=== PATIENT | female | born 1960 | race Caucasian/White ===

== ENCOUNTER 2016-06-28 13:46 | Emergency (ER) | payer MEDICARE ==
[~2016-06-28] VITALS: Ht 147.3 cm; Wt 42.1 kg
[~2016-06-28 13:46] MED LIST: ALBU2.5V NPPB; ALBU8.5H5 INH; CEFD300C2 PO; DILT240C55 PO; DOXY100T PO; ESTR1TAB17 PO; ESZO3TAB9; FERR325T20 PO; Guaifenesin PO; Ipratropium/Albuterol Sulfate NPPB; LEVO500T33 PO; LORA-446; LORA-446 PO; LORA2TAB PO; NICO1PAT10 TD; Nicotine TD; OXYC10TA6 PO; Oxycodone Hcl/Acetaminophen PO; PERCO; POLY17PO5 PO; PRED5TAB PO
[2016-06-28 14:12] VITALS: BP 132/71
[2016-06-28] MEDS ORDERED: LORazepam 1MG TABLET PO ONE (14:30)
[2016-06-28] MEDS ORDERED: THIAMINE 100MG TABLET PO ONE (14:30)
[2016-06-28] MEDS ORDERED: LORazepam 1MG TABLET ONE (15:18)
[2016-06-28] MEDS ORDERED: THIAMINE 100MG TABLET ONE (15:18)
== END 2016-06-28 17:17 | disposition home or self-care (01) ==
LOC: ED 16:13
DX: F10.229 Alcohol dependence with intoxication, unspecified (principal); F41.1 Generalized anxiety disorder; Z90.710 Acquired absence of both cervix and uterus; Z90.721 Acquired absence of ovaries, unilateral; M32.9 Systemic lupus erythematosus, unspecified; Z91.14 Patient's other noncompliance with medication regimen
CPT/HCPCS: 99283

== ENCOUNTER → 2016-08-12 | Outpatient (CLI) | payer MEDICARE ==
[~2016-08-12] MED LIST changes: -CEFD300C2 PO; +CEFD300C37 PO
== END | disposition home or self-care (01) ==
LOC: CFH 07:28
PROVIDERS: ATTEND Nurse Practitioner Family
DX: S20.02XA Contusion of left breast, initial encounter (principal); X58.XXXA Exposure to other specified factors, initial encounter; Y93.89 Activity, other specified; Y92.89 Other specified places as the place of occurrence of the external cause; Y99.8 Other external cause status

== ENCOUNTER → 2016-08-31 | Outpatient (CLI) | payer MEDICARE | END | disposition home or self-care (01) | LOC: CFH 06:50 | PROVIDERS: ATTEND Physical Medicine & Rehabilitation | DX: M75.102 Unspecified rotator cuff tear or rupture of left shoulder, not specified as traumatic (principal); M19.012 Primary osteoarthritis, left shoulder ==

== ENCOUNTER 2017-01-29 13:04 | Emergency (ER) | payer MEDICARE ==
[~2017-01-29] VITALS: Ht 144.8 cm; Wt 42.4 kg
[~2017-01-29 13:04] MED LIST changes: +ESZO3TAB28; -ESZO3TAB9; +FERR325T18 PO; -FERR325T20 PO; -LEVO500T33 PO; +LEVO500T47 PO; +NICO-485 TD; -NICO1PAT10 TD
[2017-01-29 13:20] VITALS: BP 149/83
[2017-01-29] MEDS ORDERED: PROPARACAINE OPHTH 0.5%, 15ML ONE (13:34)
[2017-01-29] MEDS ORDERED: FLUORESCEIN OPHTHALMIC 1 MG STRIP ONE (13:34)
[2017-01-29] MEDS ORDERED: CHLORDIAZEPOXIDE 10 MG CAPSULE PO PRN (14:00)
[2017-01-29] MEDS ORDERED: FLUORESCEIN OPHTHALMIC 1 MG STRIP EACHEYE ONE (14:00)
[2017-01-29] MEDS ORDERED: PROPARACAINE OPHTH 0.5%, 15ML EACHEYE ONE (14:00)
== END 2017-01-29 14:24 | disposition home or self-care (01) ==
LOC: ED 14:18
DX: H57.13 Ocular pain, bilateral (principal); F13.239 Sedative, hypnotic or anxiolytic dependence with withdrawal, unspecified; I10 Essential (primary) hypertension; F10.20 Alcohol dependence, uncomplicated; Z90.710 Acquired absence of both cervix and uterus; Z90.721 Acquired absence of ovaries, unilateral
CPT/HCPCS: 99284

== ENCOUNTER 2017-01-30 21:43 | Observation (INO) | payer MEDICARE ==
[~2017-01-30] VITALS: Ht 157.5 cm; Wt 38.0 kg
[2017-01-30 22:55] LABS: HEMATOCRIT 32.9 % (34.6-47.8); HEMOGLOBIN 11.3 g/dL (11.7-16.4); WHITE BLOOD COUNT 4.6 x10^3/uL (3.4-10)
[2017-01-30 23:07] LABS: ASPARTATE AMINO TRANSFERASE 63 U/L (15-37); BLOOD UREA NITROGEN 11 mg/dL (7-18)
[2017-01-30 23:09] LABS: ACETAMINOPHEN < 2 mcg/mL (10-30)
[2017-01-30] MEDS ORDERED: POTASSIUM CHLORIDE 20 MEQ TAB.ER.PRT ONE (23:26)
[2017-01-30] MEDS ORDERED: MAGNESIUM SULFATE 1 GM in SODIUM CHLORIDE 0.9% 50 ML IV ONE (23:30)
[2017-01-30] MEDS ORDERED: SODIUM CHLORIDE FLUSH 10ML SYR IVF ONE (23:30)
[2017-01-30] MEDS ORDERED: POTASSIUM CHLORIDE 10% 40 MEQ/30 ML UDC PO ONE (23:30)
[2017-01-31] MEDS ORDERED: OLANZAPINE 5 MG TABLET PO ONE (02:00)
[2017-01-31] MEDS ORDERED: ALBUTEROL SULFATE 2.5 MG/3 ML NPPB PRN (02:30)
[2017-01-31] MEDS ORDERED: ONDANSETRON ODT 4 MG PO PRN (02:30)
[2017-01-31] MEDS ORDERED: ACETAMINOPHEN 325 MG TABLET PO PRN (02:30)
[2017-01-31 02:49] LABS: DAU SCREEN DISCLAIMER
[2017-01-31 04:31] VITALS: BP 153/69
[2017-01-31 08:05] VITALS: BP 135/79
[2017-01-31 09:15] LABS: HEMATOCRIT 33.2 % (34.6-47.8); HEMOGLOBIN 11.5 g/dL (11.7-16.4); WHITE BLOOD COUNT 3.4 x10^3/uL (3.4-10)
[2017-01-31 09:23] LABS: BLOOD UREA NITROGEN 10 mg/dL (7-18)
[2017-01-31] MEDS ORDERED: LORazepam 0.5MG TABLET PO PRN ×2 (09:30→11:30)
[2017-01-31] MEDS ORDERED: ESTR1TAB17 PO (15:08)
[2017-01-31] MEDS ORDERED: CHLO10CA6 PO ×2 (15:12→15:13)
[2017-01-31] MEDS ORDERED: ARTIFICIAL TEARS OPHTH SOLN 15ML EACHEYE PRN (17:00)
[2017-02-01] MEDS ORDERED: ESTRADIOL 1 MG TABLET PO SCH (09:00)
== END 2017-01-31 18:01 ==
LOC: ED 22:28 → OBSVTOIN 01-31 02:09 → INTOOBSV 01-31 02:09 → EDIP 01-31 02:09 → 3E 01-31 04:04
PROVIDERS: ADMIT Hospitalist; ATTEND Hospitalist
DX: R45.851 Suicidal ideations (principal); E87.6 Hypokalemia; J44.9 Chronic obstructive pulmonary disease, unspecified; F10.10 Alcohol abuse, uncomplicated; F17.200 Nicotine dependence, unspecified, uncomplicated; Z81.8 Family history of other mental and behavioral disorders
CPT/HCPCS: 36415; 80048; 80053; 80307; 80329; 85025; 96365; 99285; G0378; J3475; G0479; G0480

== ENCOUNTER 2017-03-14 18:12 | Emergency (ER) | payer MEDICARE ==
[~2017-03-14] VITALS: Ht 144.8 cm; Wt 43.3 kg
[~2017-03-14 18:12] MED LIST changes: +CHLO10CA6 PO
[2017-03-14] MEDS ORDERED: THIAMINE 100MG TABLET PO ONE (18:30)
[2017-03-14] MEDS ORDERED: LORazepam 1MG TABLET PO ONE (18:30)
[2017-03-14] MEDS ORDERED: THIAMINE 100MG TABLET ONE (19:06)
[2017-03-14] MEDS ORDERED: LORazepam 1MG TABLET ONE (19:07)
[2017-03-14] MEDS ORDERED: SODIUM CHLORIDE 0.9% 1,000ML IVBOLUS ONE (19:30)
[2017-03-14] MEDS ORDERED: SODIUM CHLORIDE FLUSH 10ML SYR IVF ONE (19:30)
[2017-03-14 19:34] LABS: HEMATOCRIT 37.6 % (34.6-47.8); HEMOGLOBIN 12.5 g/dL (11.7-16.4); WHITE BLOOD COUNT 6.4 x10^3/uL (3.4-10)
[2017-03-14 19:44] LABS: ASPARTATE AMINO TRANSFERASE 48 U/L (15-37); BLOOD UREA NITROGEN 10 mg/dL (7-18)
[2017-03-14 20:34] VITALS: BP 159/79
== END 2017-03-14 20:38 | disposition home or self-care (01) ==
LOC: ED 20:32
DX: F10.220 Alcohol dependence with intoxication, uncomplicated (principal); K85.20 Alcohol induced acute pancreatitis without necrosis or infection; R10.2 Pelvic and perineal pain; J44.9 Chronic obstructive pulmonary disease, unspecified; I10 Essential (primary) hypertension; M79.7 Fibromyalgia; Z90.710 Acquired absence of both cervix and uterus
CPT/HCPCS: 36415; 76830; 80053; 80307; 81003; 83690; 85025; 96360; 99285; J7030; G0479

== ENCOUNTER 2017-04-05 12:35 | Emergency (ER) | payer MEDICARE ==
[~2017-04-05] VITALS: Ht 144.8 cm; Wt 43.6 kg
[2017-04-05 13:06] VITALS: BP 131/75
== END 2017-04-05 14:03 | disposition left against medical advice (07) ==
LOC: ED 13:57
DX: F10.10 Alcohol abuse, uncomplicated (principal)
CPT/HCPCS: 99281

== ENCOUNTER → 2017-08-22 | Outpatient (CLI) | payer MEDICARE, OTHER | LOC: CFH 15:20 | PROVIDERS: ATTEND Family Medicine | DX: M50.222 Other cervical disc displacement at C5-C6 level (principal); M46.92 Unspecified inflammatory spondylopathy, cervical region | CPT/HCPCS: 72141 ==

== ENCOUNTER → 2017-08-30 | Outpatient (CLI) | payer MEDICARE, OTHER | END | disposition home or self-care (01) | LOC: CFH 08:18 | PROVIDERS: ATTEND Family Medicine | DX: N64.4 Mastodynia (principal) | CPT/HCPCS: 77066 ==

== ENCOUNTER 2017-11-07 06:28 | Inpatient (IN) | payer MEDICARE, OTHER ==
[~2017-11-07] VITALS: Ht 144.8 cm; Wt 47.9 kg
[2017-11-07] MEDS ORDERED: SODIUM CHLORIDE 0.9% 1,000ML IVBOLUS ONE ×2 (07:00→08:00)
[2017-11-07] MEDS ORDERED: THIAMINE 100MG TABLET PO ONE (07:00)
[2017-11-07] MEDS ORDERED: ONDANSETRON 2MG/ML, 2ML IVPush ONE (07:00)
[2017-11-07] MEDS ORDERED: LORazepam 2 MG/ML, 1ML IVPush ONE (07:00)
[2017-11-07] MEDS ORDERED: ONDANSETRON 2MG/ML, 2ML ONE (07:02)
[2017-11-07] MEDS ORDERED: THIAMINE 100MG TABLET ONE (07:02)
[2017-11-07] MEDS ORDERED: LORazepam 2 MG/ML, 1ML ONE (07:02)
[2017-11-07 07:04] LABS: BASOPHILS % (AUTO) 0 % (0-1); EOSINOPHILS % (AUTO) 0 % (1-7); LYMPHOCYTES # (AUTO) 0.47 x10^3/uL (1-3.4); LYMPHOCYTES % (AUTO) 6 % (22-44); MD NO; MEAN CORPUSCULAR HEMOGLOBIN 30.8 pg (27.0-34.8); MEAN CORPUSCULAR HGB CONC 33.3 g/dL (32.4-35.8); MEAN CORPUSCULAR VOLUME 92.5 fL (80-100); MEAN PLATELET VOLUME 7.9 fL (7.4-10.4); MONOCYTES # (AUTO) 0.41 x10^3/uL (0.2-0.8); MONOCYTES % (AUTO) 5 % (2-9); NEUTROPHILS # (AUTO) 7.59 x10^3/uL (1.8-6.8); NEUTROPHILS % (AUTO) 90 % (42-75); PLATELET COUNT 115 x10^3/uL (130-400); RED BLOOD COUNT 3.65 x10^6/uL (3.82-5.3); RED CELL DISTRIBUTION WIDTH 15.4 % (9.6-15.2)
[2017-11-07 07:13] LABS: ALBUMIN 3.7 g/dL (3.4-5.0); ANION GAP 20 mmol/L (5-15); CALCIUM 7.8 mg/dL (8.5-10.1); CHLORIDE 97 mmol/L (98-107)
[2017-11-07 07:22] LABS: ALANINE AMINOTRANSFERASE 66 U/L (12-78); ALKALINE PHOSPHATASE 64 U/L (45-117); BILIRUBIN,TOTAL 1.2 mg/dL (0.2-1.0); CREATININE 0.71 mg/dL (0.55-1.02)
[2017-11-07] MEDS ORDERED: MORPHINE SULFATE 4 MG/ML, 1ML ONE (07:50)
[2017-11-07 07:58] LABS: MICROSCOPIC AUTO
[2017-11-07] MEDS ORDERED: MORPHINE SULFATE 4 MG/ML, 1ML IVPush PRN (08:00)
[2017-11-07 08:01] LABS: CULTURE INDICATED? YES
[2017-11-07] MEDS ORDERED: CLON1TAB PO (09:05)
[2017-11-07] MEDS ORDERED: NITROGLYCERIN 0.4 MG BOTTLE (25 TABS) SL PRN (09:30)
[2017-11-07] MEDS ORDERED: LABETALOL 5MG/ML, 20ML IVPush PRN (09:30)
[2017-11-07] MEDS ORDERED: HEPARIN 5,000 UNITS/ML, 1ML SQ SCH (09:30)
[2017-11-07 10:09] LABS: FREE T4 (FREE THYROXINE) 0.67 ng/dL (0.76-1.46); TROPONIN I 0.019 ng/mL (0.000-0.045)
[2017-11-07 10:20] VITALS: BP 151/66
[2017-11-07] MEDS: NICOTINE 14MG/24 HR PATCH.TD24 TD SCH (10:40)
[2017-11-07] MEDS: ASPIRIN 325 MG TABLET EC PO SCH ×2 (10:40→11:13)
[2017-11-07] MEDS: morphine SULFATE 10 MG/ML, 1ML IVPush PRN (10:53)
[2017-11-07] MEDS ORDERED: LORazepam 1MG TABLET PO PRN ×4 (11:00)
[2017-11-07] MEDS ORDERED: POTASSIUM PHOSPHATE 44 MEQ in SODIUM CHLORIDE 0.9% 500 ML IV ONE (11:00)
[2017-11-07] MEDS ORDERED: MAGNESIUM SULFATE PMX 2GM/50ML 50 ML IV ONE (11:00)
[2017-11-07] MEDS ORDERED: LORazepam 2 MG/ML, 1ML IV PRN ×3 (11:00)
[2017-11-07] MEDS ORDERED: LORazepam 0.5MG TABLET PO PRN (11:00)
[2017-11-07] MEDS: MULTIVITAMIN 1 TABLET PO SCH (11:13)
[2017-11-07] MEDS: FOLIC ACID 1 MG TABLET PO SCH (11:14)
[2017-11-07] MEDS: THIAMINE 100MG TABLET PO SCH (11:14)
[2017-11-07 11:19] LABS: CHOL/HDL RATIO 1.5; LDL/HDL RATIO 0.4 (0.5-3.0)
[2017-11-07] MEDS: SODIUM CHLORIDE 0.9% 1,000 ML IV SCH ×3 (11:30→18:38)
[2017-11-07 12:09] LABS: INTERNATIONAL NORMALIZED RATIO 1.01 (0.93-1.1); PROTHROMBIN TIME 10.5 Seconds (9.6-11.5)
[2017-11-07 12:34] LABS: AMPHETAMINE SCREEN, URINE Negative (Negative); BARBITURATE SCREEN, URINE Negative (Negative); BENZODIAZEPINE SCREEN, URINE Negative (Negative); CANNABINOID SCREEN, URINE Negative (Negative); COCAINE SCREEN, URINE Negative (Negative); METHADONE SCREEN, URINE Negative (Negative); OPIATE SCREEN, URINE Positive (Negative)
[2017-11-07 12:45] VITALS: BP 138/71
[2017-11-07] MEDS: LORazepam 2 MG/ML, 1ML IV PRN ×6 (13:27→22:29)
[2017-11-07] MEDS: POTASSIUM CHLORIDE 20 MEQ, MAGNESIUM SULFATE 2 GM, THIAMINE 100 MG, MVI ADULT 10 ML, FO... IV SCH ×4 (14:38→23:21)
[2017-11-07 15:28] LABS: TROPONIN I 0.019 ng/mL (0.000-0.045)
[2017-11-07] MEDS ORDERED: ENOXAPARIN 40 MG/0.4 ML SQ SCH (17:30)
[2017-11-07] MEDS: ATORVASTATIN 40 MG TABLET PO SCH (20:05)
[2017-11-07 20:16] VITALS: BP 144/78
[2017-11-08 00:56] VITALS: BP 136/76
[2017-11-08] MEDS: LORazepam 2 MG/ML, 1ML IV PRN ×4 (01:04→07:38)
[2017-11-08] MEDS: NICOTINE 14MG/24 HR PATCH.TD24 TD SCH ×2 (01:04→17:08)
[2017-11-08] MEDS: SODIUM CHLORIDE 0.9% 1,000 ML IV SCH (02:09)
[2017-11-08] MEDS: POTASSIUM CHLORIDE 20 MEQ, MAGNESIUM SULFATE 2 GM, THIAMINE 100 MG, MVI ADULT 10 ML, FO... IV SCH ×2 (03:28→17:08)
[2017-11-08 05:30] LABS: MEAN CORPUSCULAR HEMOGLOBIN 31.8 pg (27.0-34.8); MEAN CORPUSCULAR HGB CONC 34.6 g/dL (32.4-35.8); MEAN CORPUSCULAR VOLUME 91.9 fL (80-100); RED BLOOD COUNT 3.57 x10^6/uL (3.82-5.3)
[2017-11-08 05:41] LABS: ALANINE AMINOTRANSFERASE 49 U/L (12-78); ALBUMIN 3.2 g/dL (3.4-5.0); ANION GAP 12 mmol/L (5-15); CHLORIDE 95 mmol/L (98-107); CREATININE 0.41 mg/dL (0.55-1.02)
[2017-11-08 06:03] LABS: CALCIUM 5.7 mg/dL (8.5-10.1)
[2017-11-08 06:07] LABS: ALKALINE PHOSPHATASE 55 U/L (45-117); BILIRUBIN,TOTAL 1.3 mg/dL (0.2-1.0); TOTAL PROTEIN 6.2 g/dL (6.4-8.2)
[2017-11-08 06:09] LABS: BASOPHILS % (AUTO) 0 % (0-1); EOSINOPHILS # (AUTO) 0.04 x10^3/uL (0-0.4); EOSINOPHILS % (AUTO) 1 % (1-7); LYMPHOCYTES % (AUTO) 24 % (22-44); MD SCAN; MEAN PLATELET VOLUME 8.1 fL (7.4-10.4); MONOCYTES # (AUTO) 0.26 x10^3/uL (0.2-0.8); MONOCYTES % (AUTO) 6 % (2-9); NEUTROPHILS % (AUTO) 69 % (42-75); PLATELET COUNT 80 x10^3/uL (130-400)
[2017-11-08] MEDS ORDERED: MAGNESIUM SULFATE PMX 2GM/50ML 50 ML IV ONE (06:30)
[2017-11-08] MEDS ORDERED: POTASSIUM CHLORIDE 40 MEQ in SODIUM CHLORIDE 0.9% 500 ML IV ONE (06:30)
[2017-11-08] MEDS ORDERED: POTASSIUM PHOSPHATE 44 MEQ in SODIUM CHLORIDE 0.9% 500 ML IV ONE (06:30)
[2017-11-08] MEDS ORDERED: CALCIUM CHLORIDE 13.6 MEQ in SODIUM CHLORIDE 0.9% 100 ML IV ONE (06:30)
[2017-11-08 06:59] LABS: ALBUMIN 3.3 g/dL (3.4-5.0); ANION GAP 13 mmol/L (5-15); CHLORIDE 94 mmol/L (98-107)
[2017-11-08 07:02] LABS: ALANINE AMINOTRANSFERASE 52 U/L (12-78); ALKALINE PHOSPHATASE 56 U/L (45-117); BILIRUBIN,TOTAL 1.5 mg/dL (0.2-1.0); CREATININE 0.38 mg/dL (0.55-1.02); TOTAL PROTEIN 6.4 g/dL (6.4-8.2)
[2017-11-08 07:09] LABS: CALCIUM 5.4 mg/dL (8.5-10.1)
[2017-11-08 07:30] VITALS: BP 112/65
[2017-11-08] MEDS: LORazepam 2 MG/ML, 1ML IVPush PRN ×4 (10:36→20:19)
[2017-11-08] MEDS: MULTIVITAMIN 1 TABLET PO SCH (10:37)
[2017-11-08] MEDS: THIAMINE 100MG TABLET PO SCH (10:37)
[2017-11-08] MEDS: FOLIC ACID 1 MG TABLET PO SCH (10:37)
[2017-11-08 13:46] LABS: HIT RESULT POSITIVE (NEGATIVE)
[2017-11-08 14:35] VITALS: BP 142/92
[2017-11-08] MEDS: POTASSIUM CHLORIDE 20 MEQ in LACTATED RINGERS 1,000 ML IV SCH (18:22)
[2017-11-08] MEDS: morphine SULFATE 10 MG/ML, 1ML IVPush PRN ×2 (18:25→23:36)
[2017-11-08 18:41] VITALS: BP 137/89
[2017-11-08] MEDS: ATORVASTATIN 40 MG TABLET PO SCH (20:19)
[2017-11-08] MEDS ORDERED: OMNIPAQUE 350 MG/ML, 100ML BOTTLE ONE (23:15)
[2017-11-09] MEDS: POTASSIUM CHLORIDE 20 MEQ in LACTATED RINGERS 1,000 ML IV SCH ×3 (00:57→22:22)
[2017-11-09 01:38] VITALS: BP 131/82
[2017-11-09] MEDS: morphine SULFATE 10 MG/ML, 1ML IVPush PRN ×3 (04:53→15:21)
[2017-11-09 04:59] LABS: MEAN CORPUSCULAR HEMOGLOBIN 30.9 pg (27.0-34.8); MEAN CORPUSCULAR HGB CONC 33.6 g/dL (32.4-35.8); MEAN CORPUSCULAR VOLUME 92.2 fL (80-100); RED BLOOD COUNT 3.89 x10^6/uL (3.82-5.3); RED CELL DISTRIBUTION WIDTH 15.3 % (9.6-15.2)
[2017-11-09 05:08] LABS: ALBUMIN 3.2 g/dL (3.4-5.0); CHLORIDE 97 mmol/L (98-107)
[2017-11-09 05:17] LABS: ALANINE AMINOTRANSFERASE 55 U/L (12-78); ALKALINE PHOSPHATASE 54 U/L (45-117); ANION GAP 8 mmol/L (5-15); BILIRUBIN,TOTAL 1.4 mg/dL (0.2-1.0); CALCIUM 6.7 mg/dL (8.5-10.1); CREATININE 0.28 mg/dL (0.55-1.02); TOTAL PROTEIN 6.3 g/dL (6.4-8.2)
[2017-11-09 05:31] LABS: BASOPHILS # (AUTO) 0.01 x10^3/uL (0-0.1); BASOPHILS % (AUTO) 0 % (0-1); EOSINOPHILS # (AUTO) 0.06 x10^3/uL (0-0.4); EOSINOPHILS % (AUTO) 1 % (1-7); LYMPHOCYTES # (AUTO) 0.81 x10^3/uL (1-3.4); LYMPHOCYTES % (AUTO) 19 % (22-44); MD SCAN; MEAN PLATELET VOLUME 8.1 fL (7.4-10.4); MONOCYTES # (AUTO) 0.21 x10^3/uL (0.2-0.8); MONOCYTES % (AUTO) 5 % (2-9); NEUTROPHILS # (AUTO) 3.16 x10^3/uL (1.8-6.8); NEUTROPHILS % (AUTO) 74 % (42-75); PLATELET COUNT 84 x10^3/uL (130-400)
[2017-11-09] MEDS: ASPIRIN 325 MG TABLET EC PO SCH (06:00)
[2017-11-09 07:01] VITALS: BP 145/87
[2017-11-09] MEDS ORDERED: MAGNESIUM SULFATE PMX 2GM/50ML 50 ML IV ONE (08:30)
[2017-11-09] MEDS ORDERED: CALCIUM GLUCONATE 9.2 MEQ in SODIUM CHLORIDE 0.9% 100 ML IV ONE (08:30)
[2017-11-09] MEDS ORDERED: POTASSIUM PHOSPHATE 44 MEQ in SODIUM CHLORIDE 0.9% 500 ML IV SCH (08:30)
[2017-11-09] MEDS: THIAMINE 100MG TABLET PO SCH (08:41)
[2017-11-09] MEDS: MULTIVITAMIN 1 TABLET PO SCH (08:41)
[2017-11-09] MEDS: FOLIC ACID 1 MG TABLET PO SCH (08:41)
[2017-11-09 13:37] VITALS: BP 157/98
[2017-11-09] MEDS: POTASSIUM PHOSPHATE 44 MEQ in SODIUM CHLORIDE 0.9% 500 ML IV SCH (13:42)
[2017-11-09] MEDS: NICOTINE 14MG/24 HR PATCH.TD24 TD SCH (17:04)
[2017-11-09] MEDS: LORazepam 2 MG/ML, 1ML IVPush PRN ×2 (18:37→22:22)
[2017-11-09] MEDS: POTASSIUM CHLORIDE 20 MEQ, MAGNESIUM SULFATE 2 GM, THIAMINE 100 MG, MVI ADULT 10 ML, FO... IV SCH (18:38)
[2017-11-09 20:07] VITALS: BP 150/93
[2017-11-09] MEDS: ATORVASTATIN 40 MG TABLET PO SCH (22:21)
[2017-11-10] MEDS: POTASSIUM PHOSPHATE 44 MEQ in SODIUM CHLORIDE 0.9% 500 ML IV SCH (00:35)
[2017-11-10 02:16] VITALS: BP 152/90
[2017-11-10] MEDS: LORazepam 2 MG/ML, 1ML IVPush PRN (05:10)
[2017-11-10] MEDS: POTASSIUM CHLORIDE 20 MEQ in LACTATED RINGERS 1,000 ML IV SCH (05:10)
[2017-11-10] MEDS: ASPIRIN 325 MG TABLET EC PO SCH (06:00)
[2017-11-10 06:03] LABS: MEAN CORPUSCULAR HEMOGLOBIN 31.8 pg (27.0-34.8); MEAN CORPUSCULAR HGB CONC 34.4 g/dL (32.4-35.8); MEAN CORPUSCULAR VOLUME 92.5 fL (80-100); MEAN PLATELET VOLUME 7.7 fL (7.4-10.4); PLATELET COUNT 93 x10^3/uL (130-400); RED BLOOD COUNT 3.86 x10^6/uL (3.82-5.3); RED CELL DISTRIBUTION WIDTH 15.3 % (9.6-15.2)
[2017-11-10 06:04] LABS: CALCIUM 8.1 mg/dL (8.5-10.1); CHLORIDE 99 mmol/L (98-107)
[2017-11-10 06:15] LABS: ALANINE AMINOTRANSFERASE 67 U/L (12-78); ALBUMIN 3.3 g/dL (3.4-5.0); ALKALINE PHOSPHATASE 59 U/L (45-117); ANION GAP 9 mmol/L (5-15); BILIRUBIN,TOTAL 1.4 mg/dL (0.2-1.0); CREATININE 0.35 mg/dL (0.55-1.02); TOTAL PROTEIN 6.5 g/dL (6.4-8.2)
[2017-11-10 06:20] LABS: BASOPHILS # (AUTO) 0.01 x10^3/uL (0-0.1); BASOPHILS % (AUTO) 0 % (0-1); EOSINOPHILS # (AUTO) 0.05 x10^3/uL (0-0.4); EOSINOPHILS % (AUTO) 1 % (1-7); LYMPHOCYTES # (AUTO) 0.76 x10^3/uL (1-3.4); LYMPHOCYTES % (AUTO) 19 % (22-44); MD SCAN; MONOCYTES # (AUTO) 0.36 x10^3/uL (0.2-0.8); MONOCYTES % (AUTO) 9 % (2-9); NEUTROPHILS % (AUTO) 71 % (42-75)
[2017-11-10 08:06] VITALS: BP 151/98
[2017-11-10] MEDS: FOLIC ACID 1 MG TABLET PO SCH (09:00)
[2017-11-10] MEDS: THIAMINE 100MG TABLET PO SCH (09:00)
[2017-11-10] MEDS: MULTIVITAMIN 1 TABLET PO SCH (09:00)
[2017-11-10] MEDS: SODIUM CHLORIDE 0.9% 1,000 ML IV SCH (10:45)
[2017-11-10] MEDS: PROMETHAZINE 25 MG/ML, 1ML IM PRN ×2 (10:46→17:13)
[2017-11-10] MEDS: KETOROLAC 30 MG/1 ML IVPush PRN ×3 (10:46→23:56)
[2017-11-10 13:10] VITALS: BP 121/79
[2017-11-10] MEDS: NICOTINE 14MG/24 HR PATCH.TD24 TD SCH (17:00)
[2017-11-10 19:30] VITALS: BP 154/89
[2017-11-10] MEDS: POTASSIUM CHLORIDE 20 MEQ, MAGNESIUM SULFATE 2 GM, THIAMINE 100 MG, MVI ADULT 10 ML, FO... IV SCH (20:06)
[2017-11-10] MEDS: ATORVASTATIN 40 MG TABLET PO SCH (21:00)
[2017-11-11 00:42] VITALS: BP 159/87
[2017-11-11] MEDS: LORazepam 2 MG/ML, 1ML IVPush PRN (02:27)
[2017-11-11] MEDS: SODIUM CHLORIDE 0.9% 1,000 ML IV SCH ×3 (02:27→22:54)
[2017-11-11 05:27] LABS: CLOSTRIDIUM DIFFICILE ANTIGEN POSITIVE
[2017-11-11 05:28] LABS: CLOSTRIDIUM DIFFICILE TOXIN NEGATIVE (Negative)
[2017-11-11] MEDS: ASPIRIN 325 MG TABLET EC PO SCH ×2 (06:00→06:13)
[2017-11-11 06:04] LABS: CHLORIDE 106 mmol/L (98-107)
[2017-11-11 06:10] LABS: ALANINE AMINOTRANSFERASE 59 U/L (12-78); ALKALINE PHOSPHATASE 63 U/L (45-117); ANION GAP 11 mmol/L (5-15); BILIRUBIN,TOTAL 0.7 mg/dL (0.2-1.0); CALCIUM 7.2 mg/dL (8.5-10.1); CREATININE 0.37 mg/dL (0.55-1.02); TOTAL PROTEIN 6.1 g/dL (6.4-8.2)
[2017-11-11] MEDS: PROMETHAZINE 25 MG/ML, 1ML IM PRN (06:45)
[2017-11-11] MEDS: FOLIC ACID 1 MG TABLET PO SCH (07:55)
[2017-11-11] MEDS: THIAMINE 100MG TABLET PO SCH (07:55)
[2017-11-11] MEDS: MULTIVITAMIN 1 TABLET PO SCH (07:55)
[2017-11-11] MEDS ORDERED: MAGNESIUM SULFATE PMX 2GM/50ML 50 ML IV ONE (08:00)
[2017-11-11] MEDS: KETOROLAC 30 MG/1 ML IVPush PRN ×3 (08:00→23:47)
[2017-11-11] MEDS ORDERED: CALCIUM GLUCONATE 9.2 MEQ in SODIUM CHLORIDE 0.9% 100 ML IV ONE (08:00)
[2017-11-11] MEDS ORDERED: POTASSIUM PHOSPHATE 44 MEQ in SODIUM CHLORIDE 0.9% 500 ML IV SCH (08:00)
[2017-11-11 08:29] VITALS: BP 144/83
[2017-11-11] MEDS ORDERED: POTASSIUM CHLORIDE 40 MEQ in SODIUM CHLORIDE 0.9% 500 ML IV ONE (08:30)
[2017-11-11 14:25] VITALS: BP 135/81
[2017-11-11] MEDS: NICOTINE 14MG/24 HR PATCH.TD24 TD SCH (16:19)
[2017-11-11] MEDS: VANCOMYCIN 50 MG/ML ORAL SUSP PO SCH ×2 (17:00→22:54)
[2017-11-11] MEDS: ATORVASTATIN 40 MG TABLET PO SCH (20:18)
[2017-11-11 20:23] VITALS: BP 143/86
[2017-11-11] MEDS ORDERED: SODIUM CHLORIDE 0.45% IV SCH (22:30)
[2017-11-11] MEDS ORDERED: POTASSIUM PHOSPHATE IV SCH (22:30)
[2017-11-11 22:54] VITALS: BP 94/58
[2017-11-12 01:34] VITALS: BP 139/75
[2017-11-12] MEDS: ASPIRIN 325 MG TABLET EC PO SCH (06:00)
[2017-11-12] MEDS: VANCOMYCIN 50 MG/ML ORAL SUSP PO SCH ×3 (06:07→19:04)
[2017-11-12] MEDS: KETOROLAC 30 MG/1 ML IVPush PRN (06:07)
[2017-11-12 06:27] LABS: ALBUMIN 2.9 g/dL (3.4-5.0); CHLORIDE 107 mmol/L (98-107)
[2017-11-12 06:32] LABS: ALANINE AMINOTRANSFERASE 66 U/L (12-78); ALKALINE PHOSPHATASE 63 U/L (45-117); ANION GAP 10 mmol/L (5-15); BILIRUBIN,TOTAL 0.9 mg/dL (0.2-1.0); CALCIUM 7.4 mg/dL (8.5-10.1); CREATININE 0.34 mg/dL (0.55-1.02)
[2017-11-12] MEDS: SODIUM CHLORIDE 0.9% 1,000 ML IV SCH (07:00)
[2017-11-12 07:38] VITALS: BP 154/78
[2017-11-12] MEDS: MULTIVITAMIN 1 TABLET PO SCH (08:07)
[2017-11-12] MEDS: THIAMINE 100MG TABLET PO SCH (08:07)
[2017-11-12] MEDS: FOLIC ACID 1 MG TABLET PO SCH (08:07)
[2017-11-12 12:20] VITALS: BP 155/79
[2017-11-12] MEDS: LORazepam 2 MG/ML, 1ML IVPush PRN ×2 (12:54→17:45)
[2017-11-12] MEDS: NICOTINE 14MG/24 HR PATCH.TD24 TD SCH (17:00)
[2017-11-12 19:39] VITALS: BP 126/60
[2017-11-12] MEDS: OXYcodone IR 5MG TABLET PO PRN (20:16)
[2017-11-12] MEDS: ATORVASTATIN 40 MG TABLET PO SCH (20:16)
[2017-11-13 01:47] VITALS: BP 114/80
[2017-11-13] MEDS: VANCOMYCIN 50 MG/ML ORAL SUSP PO SCH ×3 (01:47→13:47)
[2017-11-13] MEDS: LORazepam 2 MG/ML, 1ML IVPush PRN (01:59)
[2017-11-13] MEDS: OXYcodone IR 5MG TABLET PO PRN (04:14)
[2017-11-13 05:44] LABS: ANION GAP 9 mmol/L (5-15); CALCIUM 8.3 mg/dL (8.5-10.1); CHLORIDE 107 mmol/L (98-107)
[2017-11-13] MEDS: ASPIRIN 325 MG TABLET EC PO SCH (06:16)
[2017-11-13 07:10] VITALS: BP 116/66
[2017-11-13] MEDS: THIAMINE 100MG TABLET PO SCH (08:46)
[2017-11-13] MEDS: FOLIC ACID 1 MG TABLET PO SCH (08:46)
[2017-11-13] MEDS: MULTIVITAMIN 1 TABLET PO SCH (08:46)
[2017-11-13] MEDS ORDERED: FOLI-17 PO (11:23)
[2017-11-13] MEDS ORDERED: NICO-486 TD (11:23)
[2017-11-13] MEDS ORDERED: MULT1TAB60 PO (11:23)
[2017-11-13] MEDS ORDERED: ATOR40TA78 PO (11:23)
[2017-11-13] MEDS ORDERED: TRAM50TA2 PO (11:23)
[2017-11-13] MEDS ORDERED: VANC1VIA3 PO (11:23)
[2017-11-13] MEDS ORDERED: CLON1TAB4 PO (11:23)
[2017-11-13] MEDS ORDERED: THIA100T67 PO (11:23)
[2017-11-13 12:03] VITALS: BP 118/72
== END 2017-11-13 14:07 | disposition home or self-care (01) | DRG 439 ==
LOC: ED 08:43 → EDIP 09:07 → 4EST 10:08
PROVIDERS: ADMIT Internal Medicine; ATTEND Internal Medicine
DX: K85.20 Alcohol induced acute pancreatitis without necrosis or infection (principal); F10.239 Alcohol dependence with withdrawal, unspecified; E87.1 Hypo-osmolality and hyponatremia; E87.2 Acidosis; A04.72 Enterocolitis due to Clostridium difficile, not specified as recurrent; D64.9 Anemia, unspecified; D69.6 Thrombocytopenia, unspecified; E83.39 Other disorders of phosphorus metabolism; E83.42 Hypomagnesemia; E86.0 Dehydration; E87.6 Hypokalemia; F39 Unspecified mood [affective] disorder; F41.1 Generalized anxiety disorder; G89.29 Other chronic pain; I10 Essential (primary) hypertension; I48.91 Unspecified atrial fibrillation; J44.9 Chronic obstructive pulmonary disease, unspecified; M79.7 Fibromyalgia; Z80.0 Family history of malignant neoplasm of digestive organs; Z87.891 Personal history of nicotine dependence; Z88.8 Allergy status to other drugs, medicaments and biological substances
CPT/HCPCS: 36415; 74177; 76700; 80048; 80053; 80061; 80307; 81001; 82140; 82542; 83605; 83690; 83735; 84100; 84439; 84443; 84484; 84703; 85025; 85610; 85730; 86022; 87086; 87324; 87493; 93005; 96374; 96375; 99285; J0610; J1644; J1650; J1885; J2405; J2550; J3370; J3411; J3475; J3480; J7042; Q9967; J2060; J2270; J7030; J7040; J7120

== ENCOUNTER → 2018-03-17 | Outpatient (CLI) | payer MEDICARE ==
[~2018-03-17] MED LIST changes: +ALPR2TAB2 PO; +ATOR40TA78 PO; +CLON1TAB PO; +CLON1TAB11 PO; +FOLI-17 PO; +HYDR1TAB16 PO; +MULT1TAB60 PO; +NICO-486 TD; +THIA100T67 PO; +TRAM50TA2 PO; +VANC1VIA3 PO
[2018-03-17 09:44] LABS: MICROSCOPIC AUTO
[2018-03-17 09:48] LABS: CULTURE INDICATED? YES
[2018-03-17 09:55] LABS: BASOPHILS # (AUTO) 0.03 x10^3/uL (0-0.1); BASOPHILS % (AUTO) 1 % (0-1); EOSINOPHILS # (AUTO) 0.07 x10^3/uL (0-0.4); EOSINOPHILS % (AUTO) 1 % (1-7); LYMPHOCYTES # (AUTO) 1.47 x10^3/uL (1-3.4); LYMPHOCYTES % (AUTO) 27 % (22-44); MD NO; MEAN CORPUSCULAR HEMOGLOBIN 29.2 pg (27.0-34.8); MEAN CORPUSCULAR VOLUME 88.5 fL (80-100); MEAN PLATELET VOLUME 8.2 fL (7.4-10.4); MONOCYTES % (AUTO) 5 % (2-9); NEUTROPHILS # (AUTO) 3.66 x10^3/uL (1.8-6.8); NEUTROPHILS % (AUTO) 66 % (42-75); PLATELET COUNT 283 x10^3/uL (130-400); RED BLOOD COUNT 4.72 x10^6/uL (3.82-5.3); RED CELL DISTRIBUTION WIDTH 13.4 % (9.6-15.2)
[2018-03-17 09:59] LABS: INTERNATIONAL NORMALIZED RATIO 0.94 (0.93-1.1)
[2018-03-17 10:00] LABS: ALBUMIN 4.4 g/dL (3.4-5.0); ANION GAP 6 mmol/L (5-15); CALCIUM 9.1 mg/dL (8.5-10.1); CHLORIDE 111 mmol/L (98-107)
[2018-03-17 10:04] LABS: ALANINE AMINOTRANSFERASE 27 U/L (12-78); ALKALINE PHOSPHATASE 66 U/L (45-117); BILIRUBIN,TOTAL 0.7 mg/dL (0.2-1.0); CREATININE 0.75 mg/dL (0.55-1.02); TOTAL PROTEIN 7.9 g/dL (6.4-8.2)
== END | disposition home or self-care (01) ==
LOC: STAR 08:02
PROVIDERS: ATTEND Neurological Surgery
DX: Z01.818 Encounter for other preprocedural examination (principal); M47.892 Other spondylosis, cervical region
CPT/HCPCS: 36415; 71046; 80053; 81001; 85025; 85610; 85730; 87077; 87086; 87186; 93005

== ENCOUNTER 2018-03-26 08:24 | Inpatient (IN) | payer MEDICARE ==
[~2018-03-26] VITALS: Ht 146.1 cm; Wt 43.6 kg
[~2018-03-26 08:24] MED LIST changes: +BACITRACIN 50,000 UNIT ONE; +BUPIVACAINE/PF-EPI 0.5% 1:200K ONE; +THROMBIN 5,000 UNIT VIAL TP ONE
[2018-03-26] MEDS ORDERED: MIDAZOLAM 1 MG/ML, 2ML ONE (09:45)
[2018-03-26] MEDS ORDERED: FENTANYL PF 250 MCG/5ML ONE (09:45)
[2018-03-26] MEDS ORDERED: PROPOFOL 50 ML ONE (09:49)
[2018-03-26] MEDS ORDERED: ROCURONIUM 10MG/ML,5ML ONE (09:49)
[2018-03-26] MEDS ORDERED: DEXAMETHASONE 4 MG/ML, 1ML ONE (09:49)
[2018-03-26] MEDS ORDERED: GLYCOPYRROLATE 0.2MG/1ML, 5ML ONE (09:49)
[2018-03-26] MEDS ORDERED: NEOSTIGMINE 1 MG/ML, 10ML ONE (09:49)
[2018-03-26] MEDS ORDERED: SUCCINYLCHOLINE 20 MG/ML, 10ML ONE (09:49)
[2018-03-26] MEDS ORDERED: PROPOFOL 10 MG/ML, 20ML ONE (09:49)
[2018-03-26] MEDS ORDERED: ONDANSETRON 2MG/ML, 2ML ONE (09:49)
[2018-03-26] MEDS ORDERED: CEFAZOLIN 1,000 MG ONE (09:49)
[2018-03-26] MEDS ORDERED: ONDANSETRON ODT 8 MG PO PRN (11:30)
[2018-03-26] MEDS ORDERED: PROMETHAZINE 25 MG SUPP PR PRN (11:30)
[2018-03-26] MEDS ORDERED: OXYcodone 5 MG/5 ML ORAL.SOL UDC PO PRN (11:30)
[2018-03-26] MEDS ORDERED: MEPERIDINE/PF 25MG/0.5ML IVPush PRN (11:30)
[2018-03-26] MEDS ORDERED: LABETALOL 5MG/ML, 20ML IV PRN ×2 (11:30→14:30)
[2018-03-26] MEDS ORDERED: PROMETHAZINE 25 MG/ML, 1ML IM PRN ×3 (11:30→14:30)
[2018-03-26] MEDS ORDERED: PROMETHAZINE 12.5 MG SUPP PR PRN (11:30)
[2018-03-26] MEDS ORDERED: HYDROmorphone 2 MG/ML, 1ML IVPush PRN (11:30)
[2018-03-26] MEDS ORDERED: ONDANSETRON 2MG/ML, 2ML IV PRN ×2 (11:30→14:30)
[2018-03-26] MEDS ORDERED: hydrALAzine 20 MG/ML, 1ML IV PRN (11:30)
[2018-03-26] MEDS ORDERED: MORPHINE SULFATE 4 MG/ML, 1ML IVPush PRN (11:30)
[2018-03-26] MEDS ORDERED: ACETAMINOPHEN 325 MG TABLET PO PRN (11:30)
[2018-03-26] MEDS ORDERED: PROMETHAZINE 25 MG/ML, 1ML IV PRN (11:30)
[2018-03-26] MEDS ORDERED: FENTANYL PF 100 MCG/2ML ONE ×2 (12:18→13:23)
[2018-03-26] MEDS ORDERED: OXYcodone 5 MG/5 ML ORAL.SOL UDC ONE (13:23)
[2018-03-26] MEDS: FENTANYL PF 100 MCG/2ML IV PRN ×2 (13:25→13:35)
[2018-03-26] MEDS ORDERED: BISACODYL 10 MG SUPP PR PRN (14:30)
[2018-03-26] MEDS ORDERED: DIPHENHYDRAMINE 50 MG CAPSULE PO PRN (14:30)
[2018-03-26] MEDS ORDERED: MAGNESIUM HYDROXIDE 8%, 30ML UDC PO PRN (14:30)
[2018-03-26] MEDS: D5%-0.9% NACL+KCL 20MEQ 1,000 ML IV SCH (14:30)
[2018-03-26] MEDS ORDERED: HYDROcodone/APAP 5/325 TABLET PO PRN (14:30)
[2018-03-26] MEDS ORDERED: METHOCARBAMOL 1,000 MG in DEXTROSE 5% 100 ML IV ONE (14:30)
[2018-03-26] MEDS ORDERED: DIPHENHYDRAMINE 50 MG/ML, 1ML IM PRN (14:30)
[2018-03-26 15:34] VITALS: BP 109/46
[2018-03-26] MEDS: OXYcodone/APAP 5/325MG TABLET PO PRN ×2 (17:51→21:56)
[2018-03-26] MEDS: CEFAZOLIN PMX 1GM/50ML 50 ML IVPB SCH (19:39)
[2018-03-26 20:00] VITALS: BP 118/58
[2018-03-26] MEDS: METHOCARBAMOL 750 MG in DEXTROSE 5% 100 ML IV SCH (22:47)
[2018-03-26] MEDS: DIPHENHYDRAMINE 50 MG/ML, 1ML IVPush PRN (22:52)
[2018-03-27 00:06] VITALS: BP 104/66
[2018-03-27] MEDS: D5%-0.9% NACL+KCL 20MEQ 1,000 ML IV SCH ×2 (00:30→07:31)
[2018-03-27] MEDS: OXYcodone/APAP 5/325MG TABLET PO PRN ×2 (03:17→08:39)
[2018-03-27] MEDS: CEFAZOLIN PMX 1GM/50ML 50 ML IVPB SCH (03:21)
[2018-03-27] MEDS: DIPHENHYDRAMINE 50 MG/ML, 1ML IVPush PRN (03:26)
[2018-03-27 03:34] VITALS: BP 108/56
[2018-03-27] MEDS ORDERED: CEPHALEXIN 500 MG CAPSULE PO SCH (06:00)
[2018-03-27] MEDS: METHOCARBAMOL 750 MG in DEXTROSE 5% 100 ML IV SCH (06:25)
[2018-03-27 06:34] VITALS: BP 129/68
[2018-03-27] MEDS ORDERED: SENNA/DOCUSATE TABLET PO SCH (09:00)
[2018-03-27] MEDS ORDERED: ESTRADIOL 1 MG TABLET PO SCH (09:00)
[2018-03-27] MEDS ORDERED: OXYC-307 PO (09:14)
[2018-03-27] MEDS ORDERED: METH750T87 PO (09:14)
[2018-03-27] MEDS ORDERED: CEPH-368 PO (09:15)
[2018-03-27 10:09] VITALS: BP 122/60
[2018-03-28] MEDS ORDERED: METHOCARBAMOL 750 MG TABLET PO SCH (15:30)
== END 2018-03-27 10:30 | disposition home or self-care (01) | DRG 473 ==
LOC: OR 08:24 → 4NOR 10:06 → OR 22:32 → 4NOR 22:33 → DCLOUNGE 03-27 10:15
PROVIDERS: ADMIT Neurological Surgery; ATTEND Neurological Surgery
PROC: 0RB30ZZ Excision of Cervical Vertebral Disc, Open Approach (ICD-10-PCS; 2018-03-26)
PROC: 4A11X4G Monitoring of Peripheral Nervous Electrical Activity, Intraoperative, External Approach (ICD-10-PCS; 2018-03-26)
PROC: 0RG10A0 Fusion of Cervical Vertebral Joint with Interbody Fusion Device, Anterior Approach, Anterior Column, Open Approach (ICD-10-PCS; principal; 2018-03-26 11:30)
DX: M48.02 Spinal stenosis, cervical region (principal); M50.122 Cervical disc disorder at C5-C6 level with radiculopathy; G89.29 Other chronic pain; F32.9 Major depressive disorder, single episode, unspecified; F41.9 Anxiety disorder, unspecified; F10.20 Alcohol dependence, uncomplicated; M19.90 Unspecified osteoarthritis, unspecified site; M79.7 Fibromyalgia; Z88.6 Allergy status to analgesic agent; Z88.8 Allergy status to other drugs, medicaments and biological substances; Z82.49 Family history of ischemic heart disease and other diseases of the circulatory system; Z80.9 Family history of malignant neoplasm, unspecified
CPT/HCPCS: 72040; C1713; G0378; J0690; J1100; J2250; J2405; J2704; J2710; J3010; J3490; C1762; J0330; J1200; J2800

== ENCOUNTER 2018-08-17 05:36 | Emergency (ER) | payer MEDICARE ==
[~2018-08-17] VITALS: Ht 144.8 cm; Wt 48.0 kg
[~2018-08-17 05:36] MED LIST changes: -BACITRACIN 50,000 UNIT ONE; -BUPIVACAINE/PF-EPI 0.5% 1:200K ONE; +CEPH-368 PO; +METH750T87 PO; +OXYC-307 PO; -THROMBIN 5,000 UNIT VIAL TP ONE
--- NOTE | 2018-08-17 05:47 | NUR ---
PT BIB [facility] TONIGHT FOR ETOH WITHDRAWAL. PER PT, PT BEEN DRINKING FOR 3 WEEKS TO MANAGE PAIN OF GLF. PT WITH PMH OF ETOH ABUSE AND PANCREATITIS. PT VISIBLY SHAKY UPON ARRIVAL TO [facility] ED. PT CHANGED INTO GOWN IN [facility]. 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 VSS AT THIS TIME. PT EDUCATED ON ER PROCESS AND POC AND VERBALIZES UNDERSTANDING. CALL LIGHT IS WITHIN REACH. AWAITING ORDERS AT THIS TIME. PER SCOUT, FSBS EN ROUTE IS 88
[2018-08-17] MEDS ORDERED: THIAMINE 100 MG in SODIUM CHLORIDE 0.9% 50 ML IVPB ONE (06:00)
[2018-08-17] MEDS ORDERED: LORazepam 2 MG/ML, 1ML IVPush ONE ×2 (06:00→06:30)
[2018-08-17] MEDS ORDERED: FAMOTIDINE 20 MG/2 ML IVP ONE (06:00)
[2018-08-17] MEDS ORDERED: SODIUM CHLORIDE FLUSH 10ML SYR IVF ONE (06:00)
[2018-08-17] MEDS ORDERED: ONDANSETRON 2MG/ML, 2ML IVPush ONE (06:00)
[2018-08-17] MEDS ORDERED: SODIUM CHLORIDE 0.9% 1,000ML IVBOLUS ONE (06:00)
[2018-08-17] MEDS ORDERED: LORazepam 2 MG/ML, 1ML ONE (06:10)
[2018-08-17] MEDS ORDERED: FAMOTIDINE 20 MG/2 ML ONE (06:10)
[2018-08-17] MEDS ORDERED: ONDANSETRON 2MG/ML, 2ML ONE (06:21)
--- NOTE | 2018-08-17 06:50 | NUR ---
PT SLEEPING IN [facility] AT THIS TIME; CAMRYN. PT VSS AND UPDATED IN EMR.
--- NOTE | 2018-08-17 07:00 | NUR ---
RECEIVED REPORT FROM JORGITO JONES RN. PT RESTING ON [facility].
[2018-08-17 07:01] LABS: BASOPHILS # (AUTO) 0.04 x10^3/uL (0-0.1); BASOPHILS % (AUTO) 1 % (0-1); EOSINOPHILS % (AUTO) 0 % (1-7); LYMPHOCYTES # (AUTO) 0.51 x10^3/uL (1-3.4); LYMPHOCYTES % (AUTO) 10 % (22-44); MD NO; MEAN CORPUSCULAR HEMOGLOBIN 31.8 pg (27.0-34.8); MEAN CORPUSCULAR HGB CONC 34.5 g/dL (32.4-35.8); MEAN CORPUSCULAR VOLUME 92.4 fL (80-100); MEAN PLATELET VOLUME 6.5 fL (7.4-10.4); MONOCYTES # (AUTO) 0.53 x10^3/uL (0.2-0.8); MONOCYTES % (AUTO) 10 % (2-9); NEUTROPHILS # (AUTO) 4.17 x10^3/uL (1.8-6.8); NEUTROPHILS % (AUTO) 80 % (42-75); PLATELET COUNT 301 x10^3/uL (130-400); RED BLOOD COUNT 3.47 x10^6/uL (3.82-5.3); RED CELL DISTRIBUTION WIDTH 17.9 % (9.6-15.2)
[2018-08-17 07:11] LABS: ALANINE AMINOTRANSFERASE 116 U/L (12-78); ALBUMIN 3.4 g/dL (3.4-5.0); ANION GAP 12 mmol/L (5-15); CALCIUM 7.5 mg/dL (8.5-10.1); CHLORIDE 109 mmol/L (98-107); CREATININE 0.59 mg/dL (0.55-1.02)
[2018-08-17 07:14] LABS: ALKALINE PHOSPHATASE 96 U/L (45-117); BILIRUBIN,TOTAL 0.7 mg/dL (0.2-1.0); TOTAL PROTEIN 6.4 g/dL (6.4-8.2)
[2018-08-17] MEDS ORDERED: PROMETHAZINE 25 MG/ML, 1ML ONE (07:51)
[2018-08-17] MEDS ORDERED: CHLORDIAZEPOXIDE 5 MG CAPSULE PO ONE (08:00)
[2018-08-17] MEDS ORDERED: PROMETHAZINE 25 MG/ML, 1ML IM ONE (08:00)
--- NOTE | 2018-08-17 08:01 | NUR ---
YELLOW SLIP SENT TO PHARMACY FOR MEDICATIONS PER JUN.
--- NOTE | 2018-08-17 08:11 | NUR ---
PT RESTING ON [facility]. NADN. LEWISS. PROVIDED W/ WATER. REPOSITIONED ON [facility].
[2018-08-17 08:55] VITALS: BP 162/83
--- NOTE | 2018-08-17 08:55 | NUR ---
Patient given discharge instructions and they have confirmed that they understand the instructions. Patient ambulatory with steady gait.
== END 2018-08-17 08:58 | disposition home or self-care (01) ==
LOC: ED 08:52
DX: F10.239 Alcohol dependence with withdrawal, unspecified (principal); F10.229 Alcohol dependence with intoxication, unspecified; I10 Essential (primary) hypertension; F41.1 Generalized anxiety disorder; Z72.9 Problem related to lifestyle, unspecified; J44.9 Chronic obstructive pulmonary disease, unspecified
CPT/HCPCS: 36415; 80053; 83690; 85025; 93005; 96365; 96366; 96372; 96375; 99284; J2060; J2405; J2550; J3411; J3490; J7030

== ENCOUNTER 2019-02-02 12:14 | Emergency (ER) | payer MEDICARE ==
[~2019-02-02] VITALS: Ht 142.2 cm; Wt 43.0 kg
[~2019-02-02 12:14] MED LIST changes: +FLUC100T4 PO
[2019-02-02 12:26] VITALS: BP 104/46
== END 2019-02-02 12:45 | disposition left against medical advice (07) ==
LOC: ED 12:39
DX: G89.29 Other chronic pain (principal); M25.511 Pain in right shoulder; M54.2 Cervicalgia
CPT/HCPCS: 99281

== ENCOUNTER 2019-03-20 17:13 | Inpatient (IN) | payer MEDICARE ==
[~2019-03-20] VITALS: Ht 144.8 cm; Wt 51.5 kg
--- NOTE | 2019-03-20 18:06 | NUR ---
FIRST CONTACT WITH PT. PT C/O ABD PAIN, N/V/D, [place] X 1 WEEK, OUT OF CLONOPIN, ETOH USED FOR SLEEP (0.5-1 PINT DAILY, LAST DRINK AT 1500) HX FIBROMYALGIA, LUPUS, ESBL BY LAB PT'S AOX4. RESPS EVEN AND UNLABORED. BP/SPO2 MONITORS IN PLACE. CALL LIGHT WITHIN REACH.LAST DRINK-TODAY
[2019-03-20] MEDS ORDERED: OXYcodone/APAP 5/325MG TABLET ONE (18:24)
[2019-03-20] MEDS ORDERED: ONDANSETRON 2MG/ML, 2ML ONE (18:24)
[2019-03-20] MEDS ORDERED: SODIUM CHLORIDE FLUSH 10ML SYR IVF ONE (18:30)
[2019-03-20] MEDS ORDERED: ONDANSETRON 2MG/ML, 2ML IVPush ONE (18:30)
[2019-03-20] MEDS ORDERED: SODIUM CHLORIDE 0.9% 1,000ML IVBOLUS ONE (18:30)
[2019-03-20] MEDS ORDERED: OXYcodone/APAP 5/325MG TABLET PO ONE (18:30)
--- NOTE | 2019-03-20 18:40 | NUR ---
PT MEDICATED PER EMAR. PT TOLERATED WELL. NS INFUSING AT THIS TIME.
--- NOTE | 2019-03-20 18:41 | NUR ---
PT AWARES OF [facility].
[2019-03-20 18:59] LABS: BASOPHILS # (AUTO) 0.05 x10^3/uL (0-0.1); BASOPHILS % (AUTO) 1 % (0-1); EOSINOPHILS # (AUTO) 0.09 x10^3/uL (0-0.4); EOSINOPHILS % (AUTO) 1 % (1-7); LYMPHOCYTES % (AUTO) 11 % (22-44); MD NO; MEAN CORPUSCULAR HGB CONC 32.9 g/dL (32.4-35.8); MEAN CORPUSCULAR VOLUME 91.1 fL (80-100); MEAN PLATELET VOLUME 8.1 fL (7.4-10.4); MONOCYTES # (AUTO) 0.34 x10^3/uL (0.2-0.8); MONOCYTES % (AUTO) 4 % (2-9); NEUTROPHILS # (AUTO) 7.06 x10^3/uL (1.8-6.8); NEUTROPHILS % (AUTO) 84 % (42-75); PLATELET COUNT 137 x10^3/uL (130-400); RED BLOOD COUNT 3.87 x10^6/uL (3.82-5.3); RED CELL DISTRIBUTION WIDTH 15.5 % (9.6-15.2)
--- NOTE | 2019-03-20 19:01 | NUR ---
REPORT GIVEN TO JEFFRY QUINTERO.
[2019-03-20 19:08] LABS: ALANINE AMINOTRANSFERASE 52 U/L (12-78); ALBUMIN 3.6 g/dL (3.4-5.0); ANION GAP 13 mmol/L (5-15); CALCIUM 8.6 mg/dL (8.5-10.1); CHLORIDE 100 mmol/L (98-107); CREATININE 0.68 mg/dL (0.55-1.02)
[2019-03-20 19:10] LABS: ALKALINE PHOSPHATASE 90 U/L (45-117); BILIRUBIN,TOTAL 1.3 mg/dL (0.2-1.0); TOTAL PROTEIN 7.1 g/dL (6.4-8.2)
--- NOTE | 2019-03-20 19:25 | NUR ---
Patient states she ran out of her Clonepen x1week ago. She was unable to get a refill from her doctor. She was unable to sleep without it so she used alcohol to help her sleep. Now she feels like she is going through withdrawals. She was drinking vodka and gatorade. Her last drink was this morning.
[2019-03-20] MEDS ORDERED: LORazepam 2 MG/ML, 1ML IVPush ONE ×2 (19:30→21:30)
--- NOTE | 2019-03-20 19:37 | NUR ---
In room with MD to assist with rectal exam
[2019-03-20] MEDS ORDERED: LORazepam 2 MG/ML, 1ML ONE (19:42)
[2019-03-20 20:11] LABS: MICROSCOPIC INDICATED
[2019-03-20 20:31] LABS: CULTURE INDICATED? YES
--- NOTE | 2019-03-20 20:50 | NUR ---
Patient to be admitted per
[2019-03-20] MEDS ORDERED: POTASSIUM CHLORIDE 40 MEQ in SODIUM CHLORIDE 0.9% 500 ML IV ONE (21:00)
[2019-03-20] MEDS: SODIUM CHLORIDE 0.9% 1,000 ML IV SCH (21:15)
--- NOTE | 2019-03-20 21:16 | NUR ---
Report given to INGRID Valera. Advised K was ordered and was being sent up to the floor with patient.
[2019-03-20 21:30] VITALS: BP 146/85
[2019-03-20] MEDS ORDERED: ONDANSETRON ODT 4 MG PO PRN (21:30)
[2019-03-20] MEDS ORDERED: POLYETHYLENE GLYCOL 17 GM PACKET PO PRN (21:30)
[2019-03-20] MEDS: NICOTINE 7 MG/24 HR PATCH.TD24 TD SCH (21:30)
[2019-03-20] MEDS ORDERED: ACETAMINOPHEN 325 MG TABLET PO PRN (21:30)
[2019-03-20] MEDS ORDERED: PROMETHAZINE 25 MG/ML, 1ML IM PRN (21:30)
[2019-03-20] MEDS ORDERED: ONDANSETRON 2MG/ML, 2ML IVPush PRN (21:30)
[2019-03-20] MEDS ORDERED: LORazepam 2 MG/ML, 1ML IV PRN ×3 (21:30)
[2019-03-20] MEDS ORDERED: LORazepam 0.5MG TABLET PO PRN (21:30)
[2019-03-20] MEDS ORDERED: morphine SULFATE 10 MG/ML, 1ML IVPush PRN (21:30)
[2019-03-20] MEDS ORDERED: hydrALAzine 20 MG/ML, 1ML IVPush PRN (21:30)
[2019-03-20] MEDS ORDERED: PANTOPRAZOLE 40 MG IV IVPush SCH (21:30)
[2019-03-20] MEDS ORDERED: BISACODYL 10 MG SUPP PR PRN (21:30)
[2019-03-20] MEDS ORDERED: DOCUSATE 100 MG CAPSULE PO PRN (21:30)
[2019-03-20] MEDS ORDERED: LORazepam 1MG TABLET PO PRN ×3 (21:30)
[2019-03-20] MEDS ORDERED: OXYcodone IR 5MG TABLET PO PRN (21:30)
[2019-03-20] MEDS ORDERED: PANTOPRAZOLE 40 MG IV ONE (21:39)
[2019-03-20 22:03] LABS: HEMOGLOBIN A1C 5.2 % (4.2-6.3)
[2019-03-20 22:19] LABS: FREE T4 (FREE THYROXINE) 0.78 ng/dL (0.76-1.46)
[2019-03-20] MEDS: LORazepam 1MG TABLET PO PRN (23:30)
[2019-03-21] MEDS ORDERED: OMNIPAQUE 350 MG/ML, 100ML BOTTLE ONE (00:18)
[2019-03-21 00:46] VITALS: BP 147/78
[2019-03-21] MEDS: LORazepam 1MG TABLET PO PRN ×2 (01:34→20:39)
[2019-03-21] MEDS: LORazepam 2 MG/ML, 1ML IV PRN ×2 (03:15→05:37)
[2019-03-21] MEDS ORDERED: CLON2TAB PO (05:09)
[2019-03-21] MEDS ORDERED: ESTR1TAB15 PO (05:13)
[2019-03-21] MEDS: SODIUM CHLORIDE 0.9% 1,000 ML IV SCH ×2 (05:36→20:41)
[2019-03-21 06:23] LABS: BASOPHILS # (AUTO) 0.01 x10^3/uL (0-0.1); BASOPHILS % (AUTO) 0 % (0-1); EOSINOPHILS # (AUTO) 0.04 x10^3/uL (0-0.4); EOSINOPHILS % (AUTO) 1 % (1-7); LYMPHOCYTES # (AUTO) 1.08 x10^3/uL (1-3.4); LYMPHOCYTES % (AUTO) 16 % (22-44); MD NO; MEAN CORPUSCULAR HEMOGLOBIN 30.1 pg (27.0-34.8); MEAN CORPUSCULAR HGB CONC 32.8 g/dL (32.4-35.8); MEAN CORPUSCULAR VOLUME 91.7 fL (80-100); MEAN PLATELET VOLUME 8.3 fL (7.4-10.4); MONOCYTES # (AUTO) 0.28 x10^3/uL (0.2-0.8); MONOCYTES % (AUTO) 4 % (2-9); NEUTROPHILS # (AUTO) 5.37 x10^3/uL (1.8-6.8); NEUTROPHILS % (AUTO) 79 % (42-75); PLATELET COUNT 109 x10^3/uL (130-400); RED BLOOD COUNT 3.55 x10^6/uL (3.82-5.3); RED CELL DISTRIBUTION WIDTH 15.2 % (9.6-15.2)
[2019-03-21 06:25] LABS: CHLORIDE 101 mmol/L (98-107)
[2019-03-21 06:32] LABS: ALANINE AMINOTRANSFERASE 53 U/L (12-78); ALBUMIN 3.1 g/dL (3.4-5.0); ALKALINE PHOSPHATASE 93 U/L (45-117); ANION GAP 5 mmol/L (5-15); BILIRUBIN,TOTAL 1.8 mg/dL (0.2-1.0); CALCIUM 7.9 mg/dL (8.5-10.1); CHOL/HDL RATIO 1.7; CHOLESTEROL, TOTAL 152 mg/dL (140-239); CREATININE 0.59 mg/dL (0.55-1.02); HDL CHOL % 61 % (28-40); HDL CHOLESTEROL (DIRECT) 92 mg/dL (40-60); LDL CHOLESTEROL,CALCULATED 34 mg/dL (54-169); LDL/HDL RATIO 0.4 (0.5-3.0); TOTAL PROTEIN 6.3 g/dL (6.4-8.2); TRIGLYCERIDES 128 mg/dL (50-200); VLDL CHOLESTEROL 26 mg/dL (0-25)
[2019-03-21] MEDS ORDERED: ACETAMINOPHEN 325 MG TABLET PO PRN (07:30)
[2019-03-21] MEDS: MULTIVITAMIN 1 TABLET PO SCH (09:00)
[2019-03-21] MEDS: THIAMINE 100MG TABLET PO SCH (09:00)
[2019-03-21] MEDS: OXYcodone IR 5MG TABLET PO PRN ×2 (09:02→16:19)
[2019-03-21] MEDS: FOLIC ACID 1 MG TABLET PO SCH (09:02)
[2019-03-21] MEDS: LACTOBACILLUS CHEW TABLET PO SCH ×3 (09:02→20:39)
[2019-03-21] MEDS: HEPARIN 5,000 UNITS/ML, 1ML SQ SCH ×2 (09:03→20:40)
[2019-03-21 09:20] VITALS: BP 142/74
[2019-03-21] MEDS ORDERED: morphine SULFATE 10 MG/ML, 1ML IVPush PRN (09:30)
[2019-03-21] MEDS ORDERED: MAGNESIUM SULFATE PMX 4GM/100M 100 ML IV ONE (11:00)
[2019-03-21 14:00] VITALS: BP 136/82
[2019-03-21 19:02] VITALS: BP 145/79
[2019-03-21] MEDS: NICOTINE 7 MG/24 HR PATCH.TD24 TD SCH (20:40)
[2019-03-22] MEDS: LORazepam 2 MG/ML, 1ML IV PRN ×3 (00:11→03:39)
[2019-03-22 00:39] VITALS: BP 146/78
[2019-03-22 06:55] LABS: ANION GAP 6 mmol/L (5-15); CALCIUM 8.2 mg/dL (8.5-10.1); CHLORIDE 99 mmol/L (98-107)
[2019-03-22 07:03] LABS: % IRON SATURATION 28 % (20-55); CREATININE 0.58 mg/dL (0.55-1.02); IRON LEVEL 84 mcg/dL (50-170); TOTAL IRON BINDING CAPACITY 297 mcg/dL (250-450)
[2019-03-22 07:07] VITALS: BP 130/89
[2019-03-22] MEDS ORDERED: POTASSIUM CHLORIDE 20 MEQ TAB.ER.PRT PO ONE (07:30)
[2019-03-22 07:32] LABS: BASOPHILS # (AUTO) 0.01 x10^3/uL (0-0.1); BASOPHILS % (AUTO) 0 % (0-1); EOSINOPHILS # (AUTO) 0.11 x10^3/uL (0-0.4); EOSINOPHILS % (AUTO) 3 % (1-7); LYMPHOCYTES # (AUTO) 1.19 x10^3/uL (1-3.4); LYMPHOCYTES % (AUTO) 27 % (22-44); MD SCAN; MEAN CORPUSCULAR HEMOGLOBIN 30.2 pg (27.0-34.8); MEAN CORPUSCULAR HGB CONC 33.1 g/dL (32.4-35.8); MEAN CORPUSCULAR VOLUME 91.5 fL (80-100); MEAN PLATELET VOLUME 9.2 fL (7.4-10.4); MONOCYTES # (AUTO) 0.22 x10^3/uL (0.2-0.8); MONOCYTES % (AUTO) 5 % (2-9); NEUTROPHILS # (AUTO) 2.89 x10^3/uL (1.8-6.8); NEUTROPHILS % (AUTO) 66 % (42-75); PLATELET COUNT 99 x10^3/uL (130-400); RED BLOOD COUNT 4.07 x10^6/uL (3.82-5.3); RED CELL DISTRIBUTION WIDTH 15.5 % (9.6-15.2)
[2019-03-22] MEDS: MULTIVITAMIN 1 TABLET PO SCH (08:55)
[2019-03-22] MEDS: THIAMINE 100MG TABLET PO SCH (08:55)
[2019-03-22] MEDS: LACTOBACILLUS CHEW TABLET PO SCH ×3 (08:55→20:11)
[2019-03-22] MEDS: ACETAMINOPHEN 325 MG TABLET PO SCH ×3 (08:55→19:30)
[2019-03-22] MEDS: FOLIC ACID 1 MG TABLET PO SCH (08:56)
[2019-03-22] MEDS: HEPARIN 5,000 UNITS/ML, 1ML SQ SCH ×2 (08:56→20:11)
[2019-03-22] MEDS: CARVEDILOL 3.125 MG TABLET PO SCH ×2 (08:56→17:23)
[2019-03-22] MEDS: OXYcodone IR 5MG TABLET PO PRN ×2 (11:33→20:17)
[2019-03-22 13:01] VITALS: BP 135/72
[2019-03-22 16:19] LABS: CLOSTRIDIUM DIFFICILE ANTIGEN NEGATIVE; CLOSTRIDIUM DIFFICILE TOXIN NEGATIVE (Negative)
[2019-03-22 17:23] VITALS: BP 158/77
[2019-03-22 19:57] VITALS: BP 151/79
[2019-03-22] MEDS: SODIUM CHLORIDE 0.9% 1,000 ML IV SCH (20:11)
[2019-03-22] MEDS: NICOTINE 7 MG/24 HR PATCH.TD24 TD SCH (20:11)
[2019-03-23 00:04] VITALS: BP 160/96
[2019-03-23] MEDS ORDERED: MELATONIN 3 MG TABLET PO ONE (00:30)
[2019-03-23] MEDS: ACETAMINOPHEN 325 MG TABLET PO SCH ×2 (00:45→07:30)
[2019-03-23] MEDS: OXYcodone IR 5MG TABLET PO PRN (02:41)
[2019-03-23 06:24] VITALS: BP 145/91
[2019-03-23] MEDS: CARVEDILOL 3.125 MG TABLET PO SCH (06:25)
[2019-03-23 07:32] VITALS: BP 132/85
[2019-03-23] MEDS: THIAMINE 100MG TABLET PO SCH (08:40)
[2019-03-23] MEDS: FOLIC ACID 1 MG TABLET PO SCH (08:40)
[2019-03-23] MEDS: LACTOBACILLUS CHEW TABLET PO SCH (08:40)
[2019-03-23] MEDS: HEPARIN 5,000 UNITS/ML, 1ML SQ SCH (08:40)
[2019-03-23] MEDS: MULTIVITAMIN 1 TABLET PO SCH (08:40)
[2019-03-23] MEDS ORDERED: ESTRADIOL 1 MG TABLET PO SCH (09:00)
[2019-03-23 10:18] LABS: ANION GAP 7 mmol/L (5-15); CALCIUM 8.6 mg/dL (8.5-10.1); CHLORIDE 102 mmol/L (98-107)
[2019-03-23] MEDS ORDERED: THIA100T67 PO (11:05)
[2019-03-23] MEDS ORDERED: ACID1TAB7 PO (11:05)
[2019-03-23] MEDS ORDERED: CARV3.1212 PO (11:05)
== END 2019-03-23 12:53 | disposition home or self-care (01) | DRG 897 ==
LOC: ED 20:50 → EDIP 20:55 → 4WST 21:35
PROVIDERS: ADMIT Internal Medicine; ATTEND Internal Medicine
DX: F10.239 Alcohol dependence with withdrawal, unspecified (principal); E87.1 Hypo-osmolality and hyponatremia; K86.0 Alcohol-induced chronic pancreatitis; F13.239 Sedative, hypnotic or anxiolytic dependence with withdrawal, unspecified; K29.20 Alcoholic gastritis without bleeding; E87.6 Hypokalemia; J44.9 Chronic obstructive pulmonary disease, unspecified; D64.9 Anemia, unspecified; D69.6 Thrombocytopenia, unspecified; E83.42 Hypomagnesemia; F17.210 Nicotine dependence, cigarettes, uncomplicated; F41.9 Anxiety disorder, unspecified; G47.00 Insomnia, unspecified; I10 Essential (primary) hypertension; M79.7 Fibromyalgia; Z76.5 Malingerer [conscious simulation]; Z86.19 Personal history of other infectious and parasitic diseases; Z90.710 Acquired absence of both cervix and uterus
CPT/HCPCS: 36415; 70450; 71045; 74177; 80048; 80053; 80061; 81001; 82306; 82607; 83036; 83540; 83550; 83690; 83735; 84100; 84439; 84443; 85025; 87086; 87324; 93005; 96361; 96365; 96375; G0378; J1644; J2405; J3480; Q9967; C9113; J2060; J3475; J7030; J7040

== ENCOUNTER 2019-09-07 15:58 | Inpatient (IN) | payer MEDICARE ==
[~2019-09-07] VITALS: Ht 144.8 cm; Wt 50.3 kg
[~2019-09-07 15:58] MED LIST changes: +ACID1TAB7 PO; +CARV3.1212 PO; +CLON2TAB PO; +ESTR1TAB15 PO
[2019-09-07] MEDS: SODIUM CHLORIDE 0.9% 1,000ML IVBOLUS ONE ×2 (16:30→17:08)
[2019-09-07] MEDS ORDERED: LORazepam 2 MG/ML, 1ML IVPush ONE ×2 (16:30→21:00)
[2019-09-07] MEDS ORDERED: LORazepam 2 MG/ML, 1ML ONE ×2 (16:38→20:59)
[2019-09-07 16:45] LABS: BASOPHILS % (AUTO) 0 % (0-1); EOSINOPHILS # (AUTO) 0.09 x10^3/uL (0-0.4); EOSINOPHILS % (AUTO) 1 % (1-7); LYMPHOCYTES # (AUTO) 1.57 x10^3/uL (1-3.4); LYMPHOCYTES % (AUTO) 24 % (22-44); MD NO; MEAN CORPUSCULAR HEMOGLOBIN 30.5 pg (27.0-34.8); MEAN CORPUSCULAR HGB CONC 32.8 g/dL (32.4-35.8); MEAN CORPUSCULAR VOLUME 92.9 fL (80-100); MEAN PLATELET VOLUME 8.4 fL (7.4-10.4); MONOCYTES # (AUTO) 0.12 x10^3/uL (0.2-0.8); MONOCYTES % (AUTO) 2 % (2-9); NEUTROPHILS # (AUTO) 4.85 x10^3/uL (1.8-6.8); NEUTROPHILS % (AUTO) 73 % (42-75); PLATELET COUNT 213 x10^3/uL (130-400); RED BLOOD COUNT 4.09 x10^6/uL (3.82-5.3); RED CELL DISTRIBUTION WIDTH 16.1 % (9.6-15.2)
[2019-09-07] MEDS ORDERED: CHLORDIAZEPOXIDE 25 MG CAPSULE PO ONE (17:00)
[2019-09-07 17:04] LABS: ALANINE AMINOTRANSFERASE 175 U/L (12-78); ALBUMIN 3.8 g/dL (3.4-5.0); ANION GAP 20 mmol/L (5-15); CALCIUM 7.8 mg/dL (8.5-10.1); CHLORIDE 98 mmol/L (98-107); CREATININE 0.77 mg/dL (0.55-1.02)
[2019-09-07 17:06] LABS: ALKALINE PHOSPHATASE 104 U/L (45-117); BILIRUBIN,TOTAL 1.3 mg/dL (0.2-1.0); TOTAL PROTEIN 7.2 g/dL (6.4-8.2)
[2019-09-07] MEDS: D5%-0.45% NACL 1,000 ML IV SCH ×2 (17:16→21:30)
--- NOTE | 2019-09-07 17:23 | NUR ---
PT HERE WITH C/O DETOX FROM ETOH. PT STATES SHE HAS BEEN DRINKING NON-STOP FOR APPROX 2 WEEKS. PT STATES "I CANT DO THIS ANYMORE" PT SIG OTHER AT BEDSIDE, STATES SHE HAS BEEN FALLING A LOT AT HOME, AND HE IS AFFRAID SHE MAY HAVE SEIZURE FROM DETOX. PT STATES LAST DRINK WAS AT 11AM TODAY, SHE DRANK 1/5TH OF WHISKEY. PIV INITIATED, PT MEDICATED PER JUN.
[2019-09-07] MEDS ORDERED: LORazepam 2 MG/ML, 1ML IVPush PRN (18:00)
[2019-09-07] MEDS ORDERED: CHLORDIAZEPOXIDE 25 MG CAPSULE ONE (18:04)
--- NOTE | 2019-09-07 18:18 | NUR ---
PT ASSISTED TO BSC, PT WITH UNSTEADY GAIT, OK FOR 1PA. PT GIVEN ADDITIONAL MEDICATIONS PER MAR. BACK TO [facility] AT THIS TIME, GIVEN WARM BLANKET FOR COMFORT. NO OTHER NEEDS AT THIS TIME
[2019-09-07] MEDS ORDERED: NEOSPORIN OINT. PKT 1 PACKET ONE (19:28)
--- NOTE | 2019-09-07 20:30 | NUR ---
PT WOULD NOT LEAVE AT DISCHARGE AND WANTED TO BE ADMITED, PROVIDER WENT BACK INTO ROOM AND REVISITED WITH PT AND ADDRESSED PT CONCERNS.
[2019-09-07] MEDS ORDERED: ONDANSETRON 2MG/ML, 2ML ONE (20:58)
[2019-09-07] MEDS ORDERED: ONDANSETRON 2MG/ML, 2ML IVPush ONE (21:00)
[2019-09-07 21:36] LABS: AMPHETAMINE SCREEN, URINE Negative (Negative); BARBITURATE SCREEN, URINE Negative (Negative); BENZODIAZEPINE SCREEN, URINE Positive (Negative); CANNABINOID SCREEN, URINE Negative (Negative); COCAINE SCREEN, URINE Negative (Negative); METHADONE SCREEN, URINE Negative (Negative); OPIATE SCREEN, URINE Negative (Negative)
[2019-09-07] MEDS ORDERED: BISACODYL 10 MG SUPP PR PRN (22:00)
[2019-09-07] MEDS ORDERED: ONDANSETRON 2MG/ML, 2ML IVPush PRN (22:00)
[2019-09-07] MEDS ORDERED: POLYETHYLENE GLYCOL 17 GM PACKET PO PRN (22:00)
[2019-09-07 23:06] VITALS: BP 115/61
[2019-09-07] MEDS: NICOTINE 7 MG/24 HR PATCH.TD24 TD SCH (23:30)
[2019-09-07] MEDS: HEPARIN 5,000 UNITS/ML, 1ML SQ SCH (23:30)
[2019-09-07] MEDS: LORazepam 2 MG/ML, 1ML IVPush PRN (23:30)
[2019-09-07] MEDS: THIAMINE 100MG TABLET PO SCH (23:32)
[2019-09-07] MEDS: SODIUM CHLORIDE 0.9% 1,000 ML IV SCH (23:32)
[2019-09-08 00:18] VITALS: BP 111/66
[2019-09-08] MEDS: LORazepam 2 MG/ML, 1ML IVPush PRN ×3 (01:49→08:52)
[2019-09-08] MEDS: CHLORDIAZEPOXIDE 10 MG CAPSULE PO PRN ×2 (02:43→08:51)
[2019-09-08 04:33] LABS: BASOPHILS % (AUTO) 0 % (0-1); EOSINOPHILS # (AUTO) 0.08 x10^3/uL (0-0.4); EOSINOPHILS % (AUTO) 1 % (1-7); LYMPHOCYTES # (AUTO) 0.86 x10^3/uL (1-3.4); LYMPHOCYTES % (AUTO) 12 % (22-44); MD NO; MEAN CORPUSCULAR HGB CONC 33.2 g/dL (32.4-35.8); MEAN CORPUSCULAR VOLUME 93.1 fL (80-100); MEAN PLATELET VOLUME 8.8 fL (7.4-10.4); MONOCYTES % (AUTO) 3 % (2-9); NEUTROPHILS # (AUTO) 5.77 x10^3/uL (1.8-6.8); NEUTROPHILS % (AUTO) 84 % (42-75); PLATELET COUNT 137 x10^3/uL (130-400); RED BLOOD COUNT 3.32 x10^6/uL (3.82-5.3); RED CELL DISTRIBUTION WIDTH 16.2 % (9.6-15.2)
[2019-09-08 04:35] LABS: ANION GAP 9 mmol/L (5-15); CALCIUM 7.4 mg/dL (8.5-10.1); CHLORIDE 99 mmol/L (98-107)
[2019-09-08 04:39] LABS: ALANINE AMINOTRANSFERASE 123 U/L (12-78); ALKALINE PHOSPHATASE 116 U/L (45-117); BILIRUBIN,TOTAL 2.1 mg/dL (0.2-1.0); CREATININE 0.79 mg/dL (0.55-1.02); TOTAL PROTEIN 5.7 g/dL (6.4-8.2)
[2019-09-08] MEDS: SODIUM CHLORIDE 0.9% 1,000 ML IV SCH ×2 (05:53→16:42)
[2019-09-08] MEDS: CARVEDILOL 3.125 MG TABLET PO SCH ×2 (06:12→17:21)
[2019-09-08] MEDS: HEPARIN 5,000 UNITS/ML, 1ML SQ SCH (06:12)
[2019-09-08 06:48] VITALS: BP 144/56
[2019-09-08] MEDS: THIAMINE 100MG TABLET PO SCH ×2 (08:51→21:29)
[2019-09-08] MEDS: SENNA/DOCUSATE TABLET PO SCH ×2 (08:51→09:00)
[2019-09-08] MEDS: FOLIC ACID 1 MG TABLET PO SCH (08:51)
[2019-09-08] MEDS: MULTIVITAMINS/MINERALS TABLET PO SCH (08:51)
[2019-09-08] MEDS ORDERED: ESTRADIOL 1 MG TABLET PO SCH (09:00)
[2019-09-08] MEDS ORDERED: LORazepam 2 MG/ML, 1ML IV PRN ×3 (09:30)
[2019-09-08 10:58] LABS: OCCULT BLOOD POSITIVE (NEGATIVE)
[2019-09-08 12:35] VITALS: BP 129/79
[2019-09-08] MEDS: PANTOPRAZOLE 80 MG in SODIUM CHLORIDE 0.9% 100 ML IV SCH ×2 (13:18→23:43)
[2019-09-08] MEDS: LORazepam 2 MG/ML, 1ML IV PRN ×3 (13:27→21:32)
[2019-09-08 13:33] LABS: PROTHROMBIN TIME 10.6 Seconds (9.6-11.5)
[2019-09-08 17:13] VITALS: BP 132/79
[2019-09-08 21:26] VITALS: BP 140/82
[2019-09-08] MEDS: NICOTINE 7 MG/24 HR PATCH.TD24 TD SCH (21:34)
[2019-09-09] VITALS (7 sets, daily range): BP systolic 115–141; BP diastolic 67–82
[2019-09-09] MEDS: SODIUM CHLORIDE 0.9% 1,000 ML IV SCH ×2 (00:49→07:34)
[2019-09-09] MEDS: LORazepam 2 MG/ML, 1ML IV PRN ×2 (01:44→05:01)
[2019-09-09] MEDS: CARVEDILOL 3.125 MG TABLET PO SCH ×2 (05:01→17:52)
[2019-09-09 06:01] LABS: CHLORIDE 99 mmol/L (98-107)
[2019-09-09 06:09] LABS: ALANINE AMINOTRANSFERASE 93 U/L (12-78); ALBUMIN 2.9 g/dL (3.4-5.0); ALKALINE PHOSPHATASE 103 U/L (45-117); ANION GAP 10 mmol/L (5-15); BILIRUBIN,TOTAL 1.7 mg/dL (0.2-1.0); CALCIUM 7.4 mg/dL (8.5-10.1); CREATININE 0.49 mg/dL (0.55-1.02); TOTAL PROTEIN 5.8 g/dL (6.4-8.2)
[2019-09-09 06:12] LABS: MEAN CORPUSCULAR HEMOGLOBIN 31.2 pg (27.0-34.8); MEAN CORPUSCULAR HGB CONC 33.2 g/dL (32.4-35.8); MEAN CORPUSCULAR VOLUME 93.9 fL (80-100); RED CELL DISTRIBUTION WIDTH 15.9 % (9.6-15.2)
[2019-09-09 06:42] LABS: BASOPHILS # (AUTO) 0.02 x10^3/uL (0-0.1); BASOPHILS % (AUTO) 0 % (0-1); EOSINOPHILS # (AUTO) 0.14 x10^3/uL (0-0.4); EOSINOPHILS % (AUTO) 2 % (1-7); LYMPHOCYTES # (AUTO) 1.04 x10^3/uL (1-3.4); LYMPHOCYTES % (AUTO) 18 % (22-44); MD SCAN; MEAN PLATELET VOLUME 9.8 fL (7.4-10.4); MONOCYTES # (AUTO) 0.13 x10^3/uL (0.2-0.8); MONOCYTES % (AUTO) 2 % (2-9); NEUTROPHILS # (AUTO) 4.58 x10^3/uL (1.8-6.8); NEUTROPHILS % (AUTO) 78 % (42-75); PLATELET COUNT 90 x10^3/uL (130-400)
[2019-09-09] MEDS ORDERED: MAGNESIUM SULFATE PMX 2GM/50ML 50 ML IV ONE (07:00)
[2019-09-09] MEDS: SENNA/DOCUSATE TABLET PO SCH (08:04)
[2019-09-09] MEDS: THIAMINE 100MG TABLET PO SCH ×2 (08:45→21:09)
[2019-09-09] MEDS: FOLIC ACID 1 MG TABLET PO SCH (08:45)
[2019-09-09] MEDS: MULTIVITAMINS/MINERALS TABLET PO SCH (08:45)
[2019-09-09] MEDS: NS + 40MEQ KCL 1,000 ML IV SCH ×2 (09:36→21:10)
[2019-09-09] MEDS: PANTOPRAZOLE 80 MG in SODIUM CHLORIDE 0.9% 100 ML IV SCH ×2 (09:36→17:52)
[2019-09-09] MEDS ORDERED: MEPERIDINE/PF 25MG/0.5ML IVPush PRN (10:30)
[2019-09-09] MEDS ORDERED: LORazepam 2 MG/ML, 1ML IVPush PRN (10:30)
[2019-09-09] MEDS ORDERED: PROMETHAZINE 25 MG/ML, 1ML IVPush PRN (10:30)
[2019-09-09] MEDS ORDERED: ONDANSETRON 2MG/ML, 2ML IVPush PRN (10:30)
[2019-09-09] MEDS ORDERED: PROPOFOL 10 MG/ML, 20ML ONE (10:30)
[2019-09-09] MEDS ORDERED: OXYcodone 5 MG/5 ML ORAL.SOL UDC PO PRN (10:30)
[2019-09-09] MEDS ORDERED: ACETAMINOPHEN 325 MG TABLET PO PRN (10:30)
[2019-09-09] MEDS ORDERED: PROMETHAZINE 25 MG SUPP PR PRN (10:30)
[2019-09-09] MEDS ORDERED: FENTANYL PF 100 MCG/2ML IV PRN (10:30)
[2019-09-09 13:38] LABS: ANION GAP 6 mmol/L (5-15); CALCIUM 7.1 mg/dL (8.5-10.1); CHLORIDE 99 mmol/L (98-107); CREATININE 0.57 mg/dL (0.55-1.02)
[2019-09-09] MEDS: ACETAMINOPHEN 325 MG TABLET PO PRN ×2 (13:39→21:09)
[2019-09-09] MEDS ORDERED: POTASSIUM CHLORIDE 20 MEQ TAB.ER.PRT PO ONE (16:00)
[2019-09-09] MEDS: POTASSIUM CHLORIDE 20 MEQ TAB.ER.PRT PO SCH (17:52)
[2019-09-09] MEDS: NICOTINE 7 MG/24 HR PATCH.TD24 TD SCH (21:10)
[2019-09-10 00:03] VITALS: BP 134/86
[2019-09-10] MEDS: PANTOPRAZOLE 80 MG in SODIUM CHLORIDE 0.9% 100 ML IV SCH (05:06)
[2019-09-10] MEDS: NS + 40MEQ KCL 1,000 ML IV SCH (05:18)
[2019-09-10 06:05] VITALS: BP 142/90
[2019-09-10 06:07] LABS: MEAN CORPUSCULAR HEMOGLOBIN 31.3 pg (27.0-34.8); MEAN CORPUSCULAR HGB CONC 33.4 g/dL (32.4-35.8); MEAN CORPUSCULAR VOLUME 93.7 fL (80-100); MEAN PLATELET VOLUME 9.3 fL (7.4-10.4); PLATELET COUNT 70 x10^3/uL (130-400); RED BLOOD COUNT 3.64 x10^6/uL (3.82-5.3); RED CELL DISTRIBUTION WIDTH 16.1 % (9.6-15.2)
[2019-09-10 06:09] LABS: ALANINE AMINOTRANSFERASE 99 U/L (12-78); ALBUMIN 2.9 g/dL (3.4-5.0); ANION GAP 8 mmol/L (5-15); CALCIUM 7.4 mg/dL (8.5-10.1); CHLORIDE 106 mmol/L (98-107); CREATININE 0.39 mg/dL (0.55-1.02)
[2019-09-10 06:11] LABS: ALKALINE PHOSPHATASE 94 U/L (45-117); BILIRUBIN,TOTAL 1.1 mg/dL (0.2-1.0)
[2019-09-10] MEDS: CARVEDILOL 3.125 MG TABLET PO SCH (06:11)
[2019-09-10 06:43] LABS: BASOPHILS # (AUTO) 0.01 x10^3/uL (0-0.1); BASOPHILS % (AUTO) 0 % (0-1); EOSINOPHILS % (AUTO) 4 % (1-7); LYMPHOCYTES % (AUTO) 20 % (22-44); MD SCAN; MONOCYTES # (AUTO) 0.13 x10^3/uL (0.2-0.8); MONOCYTES % (AUTO) 3 % (2-9); NEUTROPHILS # (AUTO) 3.58 x10^3/uL (1.8-6.8); NEUTROPHILS % (AUTO) 73 % (42-75)
[2019-09-10] MEDS: SENNA/DOCUSATE TABLET PO SCH (07:11)
[2019-09-10] MEDS: FOLIC ACID 1 MG TABLET PO SCH (08:52)
[2019-09-10] MEDS: POTASSIUM CHLORIDE 20 MEQ TAB.ER.PRT PO SCH (08:52)
[2019-09-10] MEDS: THIAMINE 100MG TABLET PO SCH (08:52)
[2019-09-10] MEDS: MULTIVITAMINS/MINERALS TABLET PO SCH (08:52)
[2019-09-10] MEDS ORDERED: PANT40TA3 PO (10:58)
[2019-09-10] MEDS ORDERED: FOLI-17 PO (10:58)
[2019-09-10] MEDS ORDERED: THIA100T67 PO (10:58)
== END 2019-09-10 12:24 | disposition home or self-care (01) | DRG 896 ==
LOC: ED 18:40 → EDIP 21:03 → 4WST 22:56 → DCLOUNGE 09-10 12:12
PROVIDERS: ADMIT Family Medicine; ATTEND Family Medicine
PROC: 0DB68ZX Excision of Stomach, Via Natural or Artificial Opening Endoscopic, Diagnostic (ICD-10-PCS; 2019-09-09)
PROC: 0DB48ZX Excision of Esophagogastric Junction, Via Natural or Artificial Opening Endoscopic, Diagnostic (ICD-10-PCS; principal; 2019-09-09 10:30)
DX: F10.239 Alcohol dependence with withdrawal, unspecified (principal); K25.4 Chronic or unspecified gastric ulcer with hemorrhage; D62 Acute posthemorrhagic anemia; K76.6 Portal hypertension; E87.2 Acidosis; I85.10 Secondary esophageal varices without bleeding; F10.229 Alcohol dependence with intoxication, unspecified; D69.6 Thrombocytopenia, unspecified; E16.2 Hypoglycemia, unspecified; E87.6 Hypokalemia; F17.210 Nicotine dependence, cigarettes, uncomplicated; F41.1 Generalized anxiety disorder; K70.10 Alcoholic hepatitis without ascites; K76.0 Fatty (change of) liver, not elsewhere classified; K44.9 Diaphragmatic hernia without obstruction or gangrene; M79.7 Fibromyalgia; W18.39XA Other fall on same level, initial encounter; I10 Essential (primary) hypertension; J44.9 Chronic obstructive pulmonary disease, unspecified; K31.89 Other diseases of stomach and duodenum; K22.70 Barrett's esophagus without dysplasia; Z90.710 Acquired absence of both cervix and uterus; Z87.440 Personal history of urinary (tract) infections; Z87.19 Personal history of other diseases of the digestive system; Z86.19 Personal history of other infectious and parasitic diseases; Z80.0 Family history of malignant neoplasm of digestive organs; Z91.81 History of falling; Z88.8 Allergy status to other drugs, medicaments and biological substances; Y93.89 Activity, other specified; Y92.098 Other place in other non-institutional residence as the place of occurrence of the external cause; Y99.8 Other external cause status; Z88.6 Allergy status to analgesic agent; Z88.5 Allergy status to narcotic agent
CPT/HCPCS: 36415; 80048; 80053; 80307; 82272; 82962; 85014; 85018; 85025; 85610; 88305; 96374; G0378; J1644; J2405; J2704; C9113; J2060; J3475; J3480; J7030

== ENCOUNTER 2019-10-26 05:12 | Emergency (ER) | payer MEDICARE, OTHER ==
[~2019-10-26] VITALS: Ht 144.8 cm; Wt 43.0 kg
[~2019-10-26 05:12] MED LIST changes: +MULT-449 PO; -MULT1TAB60 PO; +PANT40TA3 PO
--- NOTE | 2019-10-26 05:56 | NUR ---
PT CAME IN TODAY DUE TO INCREASED FALLS RECENTLY. PT STATES "I AM FEELING WEAK AND HAVE FIBROMYALGIA AND HAVE BEEN FALLING AND JUST AM SICK AND THERES PAIN AND IM DETOXING." PT STATES SHE HAS BEEN DRINKING A HALF PINT TO PINT OF BLACK VELVET FOR THE PAST 15 DAYS. LAST DRINK STATED TO BE YESTERDAY. NO HEAD TRAUMA NOTED ON PT, GROSS NEURO INTACT, C/O PAIN IN LEFT UPPER ABDOMINAL QUADRANT. PT STATES SHES STILL HAVING BM AND GAS. PT BF STATES PT HAS BEEN ALTERNATING FROM DRINKING AND GOING BACK TO BED FOR THE PAST 14 DAYS. PT REPORTED MULTIPLE FALLS LAST FEW DAYS. MULTIPLE CONTUSIONS AND ABRASION NOTED ON EXTREMITIES. PT PLACED ON SPO2/BP/ECG MONITORING. WCTM. RESIDENT MD AT FOR EVAL AND POC.
[2019-10-26] MEDS ORDERED: MAGNESIUM SULFATE 1 GM, THIAMINE 100 MG, FOLIC ACID 1 MG, MVI ADULT 10 ML in SODIUM CHL... IV ONE (06:00)
[2019-10-26] MEDS ORDERED: THIAMINE 100 MG in SODIUM CHLORIDE 0.9% 50 ML IVPB ONE (06:00)
[2019-10-26] MEDS ORDERED: LORazepam 2 MG/ML, 1ML IVPush PRN (06:00)
[2019-10-26] MEDS ORDERED: ONDANSETRON 2MG/ML, 2ML IVPush ONE (06:00)
[2019-10-26] MEDS ORDERED: ONDANSETRON 2MG/ML, 2ML ONE (06:14)
[2019-10-26] MEDS ORDERED: LORazepam 2 MG/ML, 1ML ONE (06:15)
[2019-10-26 06:16] LABS: BASOPHILS # (AUTO) 0.01 x10^3/uL (0-0.1); BASOPHILS % (AUTO) 0 % (0-1); EOSINOPHILS # (AUTO) 0.01 x10^3/uL (0-0.4); EOSINOPHILS % (AUTO) 0 % (1-7); LYMPHOCYTES # (AUTO) 0.73 x10^3/uL (1-3.4); LYMPHOCYTES % (AUTO) 13 % (22-44); MD NO; MEAN CORPUSCULAR HEMOGLOBIN 30.3 pg (27.0-34.8); MEAN CORPUSCULAR HGB CONC 32.6 g/dL (32.4-35.8); MONOCYTES # (AUTO) 0.19 x10^3/uL (0.2-0.8); MONOCYTES % (AUTO) 3 % (2-9); NEUTROPHILS # (AUTO) 4.94 x10^3/uL (1.8-6.8); NEUTROPHILS % (AUTO) 84 % (42-75); PLATELET COUNT 131 x10^3/uL (130-400); RED BLOOD COUNT 3.83 x10^6/uL (3.82-5.3); RED CELL DISTRIBUTION WIDTH 13.6 % (9.6-15.2)
[2019-10-26 06:20] LABS: ALANINE AMINOTRANSFERASE 120 U/L (12-78); ALBUMIN 4.1 g/dL (3.4-5.0); ANION GAP 25 mmol/L (5-15); CALCIUM 8.5 mg/dL (8.5-10.1); CHLORIDE 93 mmol/L (98-107); CREATININE 0.81 mg/dL (0.55-1.02)
[2019-10-26 06:22] LABS: ALKALINE PHOSPHATASE 130 U/L (45-117); BILIRUBIN,TOTAL 2.1 mg/dL (0.2-1.0); TOTAL PROTEIN 7.6 g/dL (6.4-8.2)
[2019-10-26 06:38] VITALS: BP 127/88
--- NOTE | 2019-10-26 06:39 | NUR ---
pt medicated per jun. resting in gurney. appears comfortable. pt states pain is decreased. pt talking with RN, no longer moaning or grimacing. NAD, WCTM. waiting for CTA, labs and imaging.
--- NOTE | 2019-10-26 07:01 | NUR ---
BS REPORT TO MARCY QUINTERO AND SHADI QUINTERO. PT CARE TRANSFERRED AT THIS TIME.
--- NOTE | 2019-10-26 07:10 | NUR ---
SBAR BEDSIDE HAND-OFF REPORT RECEIVED FROM INGRID JAMES. ASSUMING CARE OF PATIENT.
[2019-10-26 07:41] LABS: MICROSCOPIC AUTO
[2019-10-26 07:41] LABS: TROPONIN I < 0.015 ng/mL (0.000-0.045)
[2019-10-26] MEDS ORDERED: CEFTRIAXONE PMX 1GM/50ML 50 ML ONE (08:25)
[2019-10-26] MEDS ORDERED: CEFTRIAXONE PMX 1GM/50ML 50 ML IV ONE (08:30)
--- NOTE | 2019-10-26 10:10 | NUR ---
Patient given discharge instructions and they have confirmed that they understand the instructions.
== END 2019-10-26 10:11 | disposition home or self-care (01) ==
LOC: ED 07:41
DX: F10.220 Alcohol dependence with intoxication, uncomplicated (principal); N30.01 Acute cystitis with hematuria; R94.31 Abnormal electrocardiogram [ECG] [EKG]; Y90.9 Presence of alcohol in blood, level not specified; N28.89 Other specified disorders of kidney and ureter; F17.210 Nicotine dependence, cigarettes, uncomplicated; Z90.710 Acquired absence of both cervix and uterus; Z90.722 Acquired absence of ovaries, bilateral
CPT/HCPCS: 36415; 71045; 71275; 80053; 81001; 83735; 84484; 85025; 85379; 87086; 87186; 93005; 96365; 96366; 96368; 96375; 99285; J0696; J2060; J2405; J3411; J3475; J7030

== ENCOUNTER 2020-01-19 18:09 | Inpatient (IN) | payer MEDICARE ==
[~2020-01-19] VITALS: Ht 142.2 cm; Wt 37.8 kg
--- NOTE | 2020-01-19 18:43 | NUR ---
PT TO ROOM 1 W/ C/O WITHDRAWAL FROM KLONOPIN AND ETOH. LAST DRINK THIS AM. STATES SHE'S BEEN DRINKING 1/2 PINT/DAY X5 WEEKS. PT STATES SHE'S BEEN IN PAIN AND HER PAIN DR WON'T GIVE HER PAIN MEDS SO SHE BEGAN DRINKING. PT ALSO STATES SHE HAS KLONOPIN RX AND HAS ABUSED THEM AND CANNOT GET A REFILL FOR 5-7 DAYS. MONITORS APPLIED. PT RESTING ON [facility]. NADN. LEWISS.
--- NOTE | 2020-01-19 18:54 | NUR ---
REPORT FROM KATHIE QUINTERO ASSUMING CARE OF PT AT THIS TIME
--- NOTE | 2020-01-19 18:56 | NUR ---
REPORT GIVEN TO JORGITO HOLCOMB RN.
[2020-01-19] MEDS ORDERED: LORazepam 1MG TABLET PO ONE (19:30)
[2020-01-19] MEDS ORDERED: ONDANSETRON ODT 4 MG PO ONE (19:30)
[2020-01-19] MEDS ORDERED: ONDANSETRON ODT 4 MG ONE (19:30)
[2020-01-19] MEDS ORDERED: LORazepam 1MG TABLET ONE (19:31)
--- NOTE | 2020-01-19 19:39 | NUR ---
PT MEDICATED PER JUN. PT RESTING ON GURNEY NO SIGNS OF DISTRESS ABLE TO SPEAK IN FULL SENTENCES NO TREMORS NOTED AT THIS TIME. FAMILY AT BEDSIDE FOR COMFORT
[2020-01-19 19:42] LABS: BASOPHILS % (AUTO) 1 % (0-1); EOSINOPHILS % (AUTO) 0 % (1-7); LYMPHOCYTES % (AUTO) 8 % (22-44); MEAN CORPUSCULAR HEMOGLOBIN 30.4 pg (27.0-34.8); MEAN CORPUSCULAR HGB CONC 33.5 g/dL (32.4-35.8); MEAN PLATELET VOLUME 7.7 fL (7.4-10.4); MONOCYTES % (AUTO) 7 % (2-9); NEUTROPHILS % (AUTO) 84 % (42-75); PLATELET COUNT 66 x10^3/uL (130-400); RED BLOOD COUNT 3.46 x10^6/uL (3.82-5.3); RED CELL DISTRIBUTION WIDTH 16.2 % (9.6-15.2)
[2020-01-19 19:50] LABS: ANION GAP 15 mmol/L (5-15); CALCIUM 8.3 mg/dL (8.5-10.1); CHLORIDE 96 mmol/L (98-107); CREATININE 0.67 mg/dL (0.55-1.02)
[2020-01-19 20:03] LABS: MD SCAN
[2020-01-19] MEDS ORDERED: MAGNESIUM SULFATE 1 GM, THIAMINE 100 MG, FOLIC ACID 1 MG, MVI ADULT 10 ML in SODIUM CHL... IV ONE (20:30)
[2020-01-19] MEDS ORDERED: POTASSIUM CHLORIDE 40 MEQ in SODIUM CHLORIDE 0.9% 500 ML IV ONE (20:30)
--- NOTE | 2020-01-19 21:10 | NUR ---
PIV STARTED, PT MEDICATED PER JUN VSS, NADN FAMILY STILL AT BEDSIDE
[2020-01-19] MEDS ORDERED: DOCUSATE 100 MG CAPSULE PO PRN (22:00)
[2020-01-19] MEDS ORDERED: SODIUM CHLORIDE 0.9% 1,000 ML IV SCH (22:00)
[2020-01-19] MEDS ORDERED: NICOTINE 14MG/24 HR PATCH.TD24 TD ONE (22:00)
[2020-01-19] MEDS ORDERED: LORazepam 2 MG/ML, 1ML IV PRN ×4 (22:00)
[2020-01-19] MEDS ORDERED: LABETALOL 5MG/ML, 20ML IVPush PRN (22:00)
[2020-01-19] MEDS ORDERED: ONDANSETRON 2MG/ML, 2ML IV PRN (22:00)
--- NOTE | 2020-01-19 22:03 | NUR ---
REPORT TO [facility] PT READY FOR TRANSPORT TO ROOM 404 AT THIS TIME
[2020-01-19 22:35] VITALS: BP 135/79
[2020-01-19] MEDS: LORazepam 2 MG/ML, 1ML IV PRN (22:49)
[2020-01-20 01:26] VITALS: BP 127/72
[2020-01-20 04:18] LABS: MEAN CORPUSCULAR HEMOGLOBIN 30.6 pg (27.0-34.8); MEAN CORPUSCULAR HGB CONC 33.2 g/dL (32.4-35.8); MEAN PLATELET VOLUME 8.3 fL (7.4-10.4); PLATELET COUNT 63 x10^3/uL (130-400); RED BLOOD COUNT 3.35 x10^6/uL (3.82-5.3); RED CELL DISTRIBUTION WIDTH 16.4 % (9.6-15.2)
[2020-01-20 04:19] LABS: ALANINE AMINOTRANSFERASE 146 U/L (12-78); ANION GAP 9 mmol/L (5-15); CALCIUM 7.9 mg/dL (8.5-10.1); CHLORIDE 102 mmol/L (98-107); CREATININE 0.66 mg/dL (0.55-1.02)
[2020-01-20 04:21] LABS: ALKALINE PHOSPHATASE 132 U/L (45-117); BILIRUBIN,TOTAL 1.6 mg/dL (0.2-1.0); TOTAL PROTEIN 5.7 g/dL (6.4-8.2)
[2020-01-20 05:37] LABS: MD YES
[2020-01-20 05:40] LABS: ANISOCYTOSIS 1+; BANDS%(MANUAL) 8 % (0-7); EOS#(MANUAL) 0.05 x10^3/uL (0.0-0.4); EOS% (MANUAL) 1 % (1-7); LYMPH#(MANUAL) 1.05 x10^3/uL (1-3.4); LYMPHS% (MANUAL) 21 % (22-44); MONOS% (MANUAL) 4 % (2-9); SEGS% (MANUAL) 66 % (42-75)
[2020-01-20 05:43] LABS: <PLATELET ESTIMATE> DECREASED; <PLT MORPHOLOGY> NORMAL PLT MORPH; PAPPENHEIMER BODIES 1+
[2020-01-20 07:27] VITALS: BP 128/74
[2020-01-20] MEDS: POTASSIUM CHLORIDE 20 MEQ, MAGNESIUM SULFATE 1 GM, THIAMINE 200 MG, FOLIC ACID 1 MG, MV... IV SCH (09:06)
[2020-01-20 12:05] VITALS: BP 147/85
[2020-01-20] MEDS: ACETAMINOPHEN 325 MG TABLET PO PRN (14:09)
[2020-01-20 19:23] VITALS: BP 142/80
[2020-01-21] MEDS: ACETAMINOPHEN 325 MG TABLET PO PRN (00:50)
[2020-01-21 01:18] VITALS: BP 137/74
[2020-01-21] MEDS: LORazepam 2 MG/ML, 1ML IV PRN (05:48)
[2020-01-21 07:45] VITALS: BP 135/76
[2020-01-21] MEDS: POTASSIUM CHLORIDE 20 MEQ, MAGNESIUM SULFATE 1 GM, THIAMINE 200 MG, FOLIC ACID 1 MG, MV... IV SCH (09:00)
[2020-01-21 09:31] LABS: ANION GAP 6 mmol/L (5-15); CHLORIDE 101 mmol/L (98-107); CREATININE 0.46 mg/dL (0.55-1.02)
[2020-01-21 09:32] LABS: ALANINE AMINOTRANSFERASE 183 U/L (12-78); ALBUMIN 3.1 g/dL (3.4-5.0)
[2020-01-21 09:34] LABS: ALKALINE PHOSPHATASE 112 U/L (45-117); BILIRUBIN,TOTAL 1.4 mg/dL (0.2-1.0); TOTAL PROTEIN 6.3 g/dL (6.4-8.2)
[2020-01-21] MEDS ORDERED: POTA20TA89 PO (11:29)
[2020-01-21] MEDS ORDERED: POTASSIUM CHLORIDE 20 MEQ TAB.ER.PRT PO ONE (11:30)
== END 2020-01-21 11:30 | disposition home or self-care (01) | DRG 897 ==
LOC: ED 19:04 → EDIP 21:27 → 4WST 22:17 → DCLOUNGE 01-21 11:14
PROVIDERS: ADMIT Family Medicine; ATTEND Hospitalist
DX: F10.239 Alcohol dependence with withdrawal, unspecified (principal); F19.10 Other psychoactive substance abuse, uncomplicated; E87.6 Hypokalemia; F13.239 Sedative, hypnotic or anxiolytic dependence with withdrawal, unspecified; J44.9 Chronic obstructive pulmonary disease, unspecified; I10 Essential (primary) hypertension; D64.9 Anemia, unspecified; F17.200 Nicotine dependence, unspecified, uncomplicated; G89.29 Other chronic pain; M79.601 Pain in right arm; D69.6 Thrombocytopenia, unspecified; D69.59 Other secondary thrombocytopenia; Z90.710 Acquired absence of both cervix and uterus; Z88.5 Allergy status to narcotic agent; Z98.51 Tubal ligation status; Z82.49 Family history of ischemic heart disease and other diseases of the circulatory system; Z80.9 Family history of malignant neoplasm, unspecified; Z71.6 Tobacco abuse counseling
CPT/HCPCS: 36415; 80048; 80053; 80307; 83735; 84132; 85025; 96365; 96368; 99291; G0378; J3411; J3475; J3480; Q0162; J2060; J7030; J7040

== ENCOUNTER 2020-01-23 19:35 | Emergency (ER) | payer MEDICARE ==
[~2020-01-23] VITALS: Ht 142.2 cm; Wt 40.9 kg
[~2020-01-23 19:35] MED LIST changes: +POTA20TA89 PO
--- NOTE | 2020-01-23 19:35 | NUR ---
PT BIB [facility] FROM HOME. PER EMS, PT WAS TAKING TOO MUCH KLONOPIN, SO SHE STARTED TAKING DOXEPIN. PT REPORTED TAKING 2 DOXEPIN LAST NIGHT. THIS EVENING, PT C/O ANXIETY, HALLUCINATIONS, SHAKINESS. PT WAS IN THE HOSPITAL ON TUESDAY TO DETOX FROM ALCOHOL AND HASN'T DRANK SINCE. PT WAS MEDICATED WITH 1MG VERSED IV EN ROUTE WITH IMPROVEMENT IN SHAKINESS. VS PER EMS: 189/93, HR 105, BS 153. PT ARRIVES TO ED A&OX4. ERP AT BS IMMEDIATELY. PT ALSO C/O R ARM PAIN D/T CYST AND "MY FIBROMYALGIA IS FLARING UP".
[2020-01-23] MEDS ORDERED: THIAMINE 100MG TABLET ONE (19:46)
[2020-01-23] MEDS ORDERED: CHLORDIAZEPOXIDE 10 MG CAPSULE ONE (19:46)
[2020-01-23] MEDS ORDERED: THIAMINE 100MG TABLET PO ONE (20:00)
[2020-01-23] MEDS ORDERED: CHLORDIAZEPOXIDE 10 MG CAPSULE PO PRN (20:00)
[2020-01-23 20:18] LABS: BASOPHILS % (AUTO) 1 % (0-1); EOSINOPHILS % (AUTO) 1 % (1-7); LYMPHOCYTES % (AUTO) 12 % (22-44); MEAN CORPUSCULAR HEMOGLOBIN 30.9 pg (27.0-34.8); MEAN CORPUSCULAR HGB CONC 33.3 g/dL (32.4-35.8); MEAN PLATELET VOLUME 7.9 fL (7.4-10.4); MONOCYTES % (AUTO) 14 % (2-9); NEUTROPHILS % (AUTO) 72 % (42-75); PLATELET COUNT 169 x10^3/uL (130-400); RED BLOOD COUNT 3.29 x10^6/uL (3.82-5.3); RED CELL DISTRIBUTION WIDTH 17.8 % (9.6-15.2)
[2020-01-23 20:19] LABS: MD NO
[2020-01-23 20:26] LABS: ALBUMIN 3.3 g/dL (3.4-5.0); ANION GAP 10 mmol/L (5-15); CALCIUM 9.3 mg/dL (8.5-10.1); CHLORIDE 101 mmol/L (98-107); CREATININE 0.73 mg/dL (0.55-1.02)
[2020-01-23] MEDS ORDERED: POTASSIUM CHLORIDE 20 MEQ TAB.ER.PRT ONE (20:43)
[2020-01-23] MEDS ORDERED: MAGNESIUM SULFATE/D5W 100 ML ONE (20:44)
--- NOTE | 2020-01-23 20:55 | NUR ---
ERP WAS IN FOR RECHECK. PT MEDICATED PER ORDERS. ON MONITOR. PT NOW C/O HEADACHE.
[2020-01-23] MEDS ORDERED: MAGNESIUM SULFATE 1 GM/2 ML IVPush ONE (21:00)
[2020-01-23] MEDS ORDERED: POTASSIUM CHLORIDE 20 MEQ TAB.ER.PRT PO ONE (21:00)
[2020-01-23] MEDS ORDERED: MAGNESIUM SULFATE/D5W 100 ML IVPB ONE (21:00)
[2020-01-23] MEDS ORDERED: NAPROXEN 500 MG TABLET ONE (21:10)
[2020-01-23] MEDS ORDERED: NAPROXEN 500 MG TABLET PO ONE (21:30)
--- NOTE | 2020-01-23 21:51 | NUR ---
TASK RN: PT TO BATHROOMCAMRYN. UPDATED ON POC.
[2020-01-23 21:57] VITALS: BP 151/73
--- NOTE | 2020-01-23 22:00 | NUR ---
REPORTED TO MARCUS QUINTERO.
== END 2020-01-23 22:19 | disposition home or self-care (01) ==
LOC: ED 21:17
DX: F19.20 Other psychoactive substance dependence, uncomplicated (principal); E87.6 Hypokalemia; F13.239 Sedative, hypnotic or anxiolytic dependence with withdrawal, unspecified; R00.0 Tachycardia, unspecified; F17.210 Nicotine dependence, cigarettes, uncomplicated; I10 Essential (primary) hypertension; J44.9 Chronic obstructive pulmonary disease, unspecified; Z90.710 Acquired absence of both cervix and uterus; Z90.722 Acquired absence of ovaries, bilateral
CPT/HCPCS: 36415; 80048; 82040; 84443; 85025; 93005; 99284; 99406

== ENCOUNTER 2020-02-28 20:42 | Emergency (ER) | payer MEDICARE ==
[~2020-02-28] VITALS: Ht 142.2 cm; Wt 43.0 kg
[2020-02-28] MEDS ORDERED: SODIUM CHLORIDE 0.9% 1,000ML IVBOLUS ONE (21:30)
[2020-02-28 21:33] LABS: BASOPHILS % (AUTO) 2 % (0-1); EOSINOPHILS % (AUTO) 1 % (1-7); LYMPHOCYTES % (AUTO) 25 % (22-44); MEAN CORPUSCULAR HEMOGLOBIN 31.5 pg (27.0-34.8); MEAN CORPUSCULAR HGB CONC 34.2 g/dL (32.4-35.8); MEAN PLATELET VOLUME 8.2 fL (7.4-10.4); MONOCYTES % (AUTO) 7 % (2-9); NEUTROPHILS % (AUTO) 67 % (42-75); PLATELET COUNT 240 x10^3/uL (130-400); RED BLOOD COUNT 3.99 x10^6/uL (3.82-5.3)
[2020-02-28 21:36] LABS: MD NO
[2020-02-28 21:42] LABS: ALANINE AMINOTRANSFERASE 58 U/L (12-78); ALBUMIN 3.4 g/dL (3.4-5.0); ANION GAP 11 mmol/L (5-15); CALCIUM 8.4 mg/dL (8.5-10.1); CHLORIDE 104 mmol/L (98-107); CREATININE 0.64 mg/dL (0.55-1.02)
[2020-02-28 21:46] LABS: ALKALINE PHOSPHATASE 77 U/L (45-117); TOTAL PROTEIN 6.4 g/dL (6.4-8.2); TROPONIN I < 0.015 ng/mL (0.000-0.045)
[2020-02-28] MEDS ORDERED: LORazepam 2 MG/ML, 1ML ONE (21:46)
[2020-02-28] MEDS ORDERED: LORazepam 2 MG/ML, 1ML IVPush ONE ×2 (22:00→23:00)
[2020-02-28] MEDS ORDERED: METOPROLOL 1 MG/ML, 5ML ONE (23:17)
--- NOTE | 2020-02-28 23:27 | NUR ---
PT GIVEN WATER ON REQUEST, UP TO BR WITH STEADY GAIT, NO COMPLAINTS AT THIS TIME
[2020-02-28] MEDS ORDERED: METOPROLOL 1 MG/ML, 5ML IVPush PRN (23:30)
[2020-02-28] MEDS ORDERED: METOPROLOL TARTRATE 25 MG TAB ONE (23:42)
[2020-02-29] MEDS ORDERED: METOPROLOL TARTRATE 25 MG TAB PO ONE
[2020-02-29 00:50] VITALS: BP 136/64
--- NOTE | 2020-02-29 00:52 | NUR ---
PT SLEEPING IN BED WITH NO COMPLAINTS AND VSS, WILL BE DC
== END 2020-02-29 00:15 | disposition home or self-care (01) ==
LOC: ED 21:28
DX: F10.129 Alcohol abuse with intoxication, unspecified (principal); I47.1 Supraventricular tachycardia; I48.92 Unspecified atrial flutter; R07.89 Other chest pain; I10 Essential (primary) hypertension; J44.9 Chronic obstructive pulmonary disease, unspecified; Z90.710 Acquired absence of both cervix and uterus; Z90.721 Acquired absence of ovaries, unilateral; Y90.0 Blood alcohol level of less than 20 mg/100 ml
CPT/HCPCS: 36415; 71045; 80053; 80307; 83690; 83735; 84484; 85025; 93005; 96361; 96374; 96375; 99284; J2060; J7030